=== PATIENT | female | born 1995 | race Caucasian/White ===

== ENCOUNTER 2022-12-30 08:50 | Emergency (ER) | payer MEDICAID ==
[~2022-12-30] VITALS: Ht 170.2 cm; Wt 148.3 kg
[~2022-12-30 08:50] MED LIST: ALB5IS NEB; ALBUAER3 IN; BECL0.07 INH; MECL1TAB42 PO; PROC10TA2 PO
[2022-12-30] MEDS ORDERED: IPRATROPIUM BROM 0.5 MG/2.5ML INH SOL NEB ONE (09:00)
[2022-12-30] MEDS ORDERED: ALBUTEROL SULF 2.5 MG/0.5ML(0.5%) NEB SOLN NEB ONE (09:00)
[2022-12-30 09:40] LABS: Basophils # (auto) 0.1 10 ^3/uL (0-0.2); Basophils % (auto) 0.6 % (0.0-2.0); Eosinophils # (auto) 0.2 10 ^3/uL (0-0.8); Eosinophils % (auto) 1.2 % (0.0-7.0); Hemoglobin 13.9 g/dL (12.2-16.2); Lymphocytes # (auto) 2.1 10 ^3/uL (0.4-5.4); Lymphocytes % (auto) 12.3 % (10.0-50.0); Mean Corpuscular Hemoglobin 28.5 pg (28.0-32.0); Mean Corpuscular Volume 86.4 fL (80.0-100.0); Monocytes # (auto) 1.3 10 ^3/uL (0-1.3); Monocytes % (auto) 7.7 % (0.0-12.0); Neutrophils # (auto) 13.4 10 ^3/uL (1.6-8.6); Neutrophils % (auto) 78.2 % (37.0-80.0); Red Blood Cells 4.86 10^6/uL (4.0-5.20); Red Cell Distribution Width 14.3 % (11.8-14.3); White Blood Cell 17.2 10^3/uL (4.4-10.8)
[2022-12-30] MEDS ORDERED: methylPREDNISolone SOD SUCC 125 MG/2 ML VL IM ONE (09:45)
[2022-12-30] MEDS ORDERED: ALBUTEROL MEDNEB 2.5 mg/3ml NEB ONE (09:45)
[2022-12-30] MEDS ORDERED: PRED20TA2 PO (09:48)
[2022-12-30] MEDS ORDERED: LEVO-28 PO (09:49)
[2022-12-30 09:57] LABS: Albumin 3.6 g/dL (3.4-5.0); Calcium 8.5 mg/dL (8.5-10.1); Potassium 3.9 mmol/L (3.5-5.1)
[2022-12-30 10:01] LABS: BUN/Creatinine Ratio 10.7; Bilirubin, Total 0.9 mg/dL (0.2-1.0); Total Protein 6.7 g/dL (6.4-8.2)
[2022-12-30 13:34] VITALS: BP 133/96
== END 2022-12-30 13:37 | disposition home or self-care (01) ==
LOC: ER 08:50
DX: J45.901 Unspecified asthma with (acute) exacerbation (principal); I10 Essential (primary) hypertension; F17.210 Nicotine dependence, cigarettes, uncomplicated
CPT/HCPCS: 36415; 71045; 80053; 85025; 85379; 94640; 96372; 99284; J2930; J7644

== ENCOUNTER 2024-02-11 07:39 | Emergency (ER) | payer MEDICAID ==
[~2024-02-11] VITALS: Ht 170.2 cm; Wt 150.7 kg
[~2024-02-11 07:39] MED LIST changes: +LEVO500T91 PO; +PRED20TA2 PO; -PROC10TA2 PO; +PROC10TA6 PO
[2024-02-11 07:45] VITALS: BP 146/85; TEMP 97.6
[2024-02-11 08:41] VITALS: PULSE 102
[2024-02-11] MEDS: ALBUTEROL SULF 2.5 MG/0.5ML(0.5%) NEB SOLN NEB ONE ×2 (09:08→09:49)
[2024-02-11] MEDS: IPRATROPIUM BROM 0.5 MG/2.5ML INH SOL NEB ONE ×2 (09:09→09:49)
[2024-02-11] MEDS: DexAMETHasone 4 MG TAB PO ONE (09:20)
[2024-02-11] MEDS: BUDESONIDE (INHALATION) 0.5 MG/2 ML NEB NEB ONE (09:48)
[2024-02-11 09:49] VITALS: RESP 18; O2SAT 100
== END 2024-02-11 10:32 | disposition home or self-care (01) ==
LOC: ER 07:39
DX: J45.901 Unspecified asthma with (acute) exacerbation (principal); I10 Essential (primary) hypertension; F17.210 Nicotine dependence, cigarettes, uncomplicated; F12.10 Cannabis abuse, uncomplicated
CPT/HCPCS: 71046; 94640; 99284; J7644

== ENCOUNTER 2024-08-28 10:00 | Emergency (ER) | payer MEDICAID ==
[~2024-08-28] VITALS: Ht 170.2 cm; Wt 130.5 kg
[2024-08-28] MEDS: IPRATROPIUM BROM 0.5 MG/2.5ML INH SOL HHN ONE (10:49)
[2024-08-28] MEDS: ALBUTEROL SULF 2.5 MG/0.5ML(0.5%) NEB SOLN HHN ONE (10:50)
[2024-08-28] MEDS ORDERED: METH4PAK PO (10:57)
[2024-08-28] MEDS ORDERED: AZIT1POW PO (10:57)
[2024-08-28 13:39] VITALS: BP 115/75; PULSE 101; TEMP 98
[2024-08-28] MEDS: methylPREDNISolone SOD SUCC 125 MG/2 ML VL IV ONE (13:39)
[2024-08-28 13:41] VITALS: RESP 18; O2SAT 96
== END 2024-08-28 13:50 | disposition home or self-care (01) ==
LOC: ER 10:00 → EDUNIT# 10:00 → ER 13:50
DX: J40 Bronchitis, not specified as acute or chronic (principal)
CPT/HCPCS: 71046; 94640; 96374; 99283; J2919; 94644

== ENCOUNTER 2024-09-20 14:25 | Emergency (ER) | payer MEDICAID ==
[~2024-09-20] VITALS: Ht 170.2 cm; Wt 143.5 kg
[~2024-09-20 14:25] MED LIST changes: +AZIT1POW PO; +METH4PAK PO
[2024-09-20 14:59] LABS: Urine WBC None Seen /hpf (0 - 5)
[2024-09-20 15:06] LABS: Basophils # (auto) 0.1 10 ^3/uL (0-0.2); Basophils % (auto) 0.6 % (0.0-2.0); Eosinophils # (auto) 0.5 10 ^3/uL (0-0.8); Eosinophils % (auto) 3.6 % (0.0-7.0); Hematocrit 40.9 % (36.0-46.0); Hemoglobin 13.5 g/dL (12.2-16.2); Lymphocytes # (auto) 2.8 10 ^3/uL (0.4-5.4); Lymphocytes % (auto) 22.4 % (10.0-50.0); Mean Corpuscular Hemoglobin 28.5 pg (28.0-32.0); Mean Corpuscular Volume 86.4 fL (80.0-100.0); Monocytes % (auto) 8.1 % (0.0-12.0); Neutrophils # (auto) 8.3 10 ^3/uL (1.6-8.6); Neutrophils % (auto) 65.3 % (37.0-80.0); Nucleated Red Blood Cells % 0.1 %; Platelet Count (auto) 409 10^3/uL (140-450); Red Blood Cells 4.73 10^6/uL (4.0-5.20); Red Cell Distribution Width 14.7 % (11.8-14.3); White Blood Cell 12.7 10^3/uL (4.4-10.8)
[2024-09-20 15:07] LABS: Urine Bacteria FEW /hpf (None Seen); Urine Blood Negative /uL (Negative); Urine Clarity Clear (Clear); Urine Color Colorless (Yellow); Urine Protein, UAD Negative (Negative); Urine Specific Gravity 1.003 (1.001-1.035); Urine Urobilinogen Normal (Negative); Urine pH 6.5 (5.0-9.0)
[2024-09-20] MEDS: methylPREDNISolone SOD SUCC 125 MG/2 ML VL IM ONE (15:08)
[2024-09-20] MEDS: IPRATROPIUM BROM 0.5 MG/2.5ML INH SOL HHN ONE (15:13)
[2024-09-20] MEDS: ALBUTEROL SULF 2.5 MG/0.5ML(0.5%) NEB SOLN HHN ONE (15:13)
[2024-09-20 15:17] LABS: Chloride 109 mmol/L (98-107); Potassium 3.9 mmol/L (3.5-5.1); Sodium 140 mmol/L (136-145)
[2024-09-20 15:18] LABS: Anion Gap 6 (5-15); Calcium 9.8 mg/dL (8.7-10.4); Carbon Dioxide 25 mmol/L (20-31)
[2024-09-20 15:23] LABS: BUN/Creatinine Ratio 9.2 (10.0-20.0); Blood Urea Nitrogen 7 mg/dL (9-23); Glucose 99 mg/dL (74-106)
[2024-09-20 17:03] VITALS: BP 157/87; PULSE 97; RESP 18; TEMP 98.5; O2SAT 96
== END 2024-09-20 17:04 | disposition home or self-care (01) ==
LOC: ER 14:25
DX: J45.901 Unspecified asthma with (acute) exacerbation (principal); I10 Essential (primary) hypertension; F15.90 Other stimulant use, unspecified, uncomplicated; Z98.890 Other specified postprocedural states; Z87.891 Personal history of nicotine dependence; Z88.0 Allergy status to penicillin; Z79.51 Long term (current) use of inhaled steroids; Z79.52 Long term (current) use of systemic steroids; Z79.899 Other long term (current) drug therapy
CPT/HCPCS: 36415; 71046; 80048; 81001; 83880; 85025; 94640; 96372; 99284; J2919

== ENCOUNTER 2024-10-08 05:51 | Emergency (ER) | payer MEDICAID ==
[~2024-10-08] VITALS: Ht 170.2 cm; Wt 147.9 kg
[2024-10-08 05:55] VITALS: BP 153/59; PULSE 103; RESP 16; O2SAT 100
[2024-10-08 06:40] LABS: Urine Bacteria None Seen /hpf (None Seen); Urine WBC None Seen /hpf (0 - 5)
--- NOTE | 2024-10-08 06:44 | ED.PDOC ---
AIRLINE TICKET AGENT HPI Comments 29 y.o female presents to the ED for a chief complaint of vaginal bleeding associated with cramping that started 3 days ago. 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 Patient states she presented with spotting but intermittently has episodes where bleeding becomes heavier but no blood clots present. Patient has an appointment with OB on 10/21/24. No other symptoms or pain reported. Patient has a medical history of HTN. Denies any alcohol, tobacco or substance use. Patient is on prenatals. Chief Complaint: Vaginal Bleed Time Seen by MD: 06:20 Reviewed Notes: Nurses Notes, Medications, Allergies Allergies: Coded Allergies: Penicillins (Unverified Allergy, Unknown, 03/22/16) Home Meds Active Scripts Methylprednisolone (Medrol Dosepak) 4 Mg Thuan, 4 MG PO UD, #21 TAB UAD Prov:BENNY VALENCIA MD 09/20/24 Azithromycin (Zithromax) 1 Gm Pow, 1 PACK PO ONCE, #1 PACK Prov:BENNY VALENCIA MD 08/28/24 Levofloxacin Hemihydrate (LEVOFLOXACIN) 500 Mg Tab, 500 MG PO DAILY for 7 Days, #7 MG Prov:TOI KUMAR MD 12/30/22 Prednisone (Prednisone) 20 Mg Tab, 20 MG PO DAILY for 7 Days, #7 MG Prov:TOI KUMAR MD 12/30/22 Prochlorperazine Maleate (Compazine) 10 Mg Tb, 1 TAB PO Q6HR for 5 Days, #20 TAB 3 Refills Prov:DIANNE AVILES MD 11/18/22 Meclizine HCl (Meclizine 25) 25 Mg Tab, 25 MG PO DAILY for 5 Days, #5 TAB Prov:TOI KUMAR MD 11/18/22 Reported Medications Albuterol Sulfate (Ventolin) 2.5 Mg/0.5 Ml Nb, 1 VIAL NEB Q6HR, #120 VIAL 5 Refills 03/22/16 Beclomethasone Dipropionate (Qvar) 40 Mcg Aer, 2 PUFF INH BID, #8.7 GRAMS 5 Refills 03/22/16 Albuterol Sulfate (VENTOLIN MDI) 90 Mcg Ih, 90 MCG IN 03/22/16 Information Source: Patient Mode of Arrival: Ambulatory Timing: Days (3) Severity: Moderate Vaginal Discharge: None Vaginal Lesions: None Bleeding Quality: Bright Red Vaginal Mass: None Onset Of Mass/Bleeding: Spontaneous Sexual Activity: Last Consensual Broussard: Unknown Control: None History of: Current Associated Signs and Symptoms: Vaginal Bleeding, Cramping Past Medical History PAST MEDICAL HISTORY: Asthma, HTN Surgical History: TEMPLATE CUTTER History: No Pertinent TEMPLATE CUTTER History 3 Para 1 AB one miscarriage LMP 08/09/24 Family History Family History: Family hx of DM, Family hx of Cancer Social History Smoker: Quit Less Than 1 Year, Secondhand, Cigarettes Alcohol: Occasionally Drugs: Marijuana Lives In: Home Constitutional: denies: chills, diaphoresis, fatigue, fever, malaise, sweats, weakness, others EENTM: denies: blurred vision, double vision, ear bleeding, ear discharge, ear drainage, ear pain, ear ringing, eye pain, eye redness, hearing loss, mouth pain, mouth swelling, nasal discharge, nose bleeding, nose congestion, nose pain, photophobia, tearing, throat pain, throat swelling, voice changes, others Respiratory: denies: cough, hemoptysis, orthopnea, SOB at rest, shortness of breath, SOB with excertion, stridor, wheezing, others Cardiovascular: denies: chest pain, dizzy spells, diaphoresis, Dyspnea on exertion, edema, irregular heart beat, left arm pain, lightheadedness, palpitations, PND, syncope, others Gastrointestinal: denies: abdomen distended, abdominal pain, blood streaked bowels, constipated, diarrhea, dysphagia, difficulty swallowing, hematemesis, melena, nausea, poor appetite, poor fluid intake, rectal bleeding, rectal pain, vomiting, others Genitourinary: reports: abnormal vagina bleeding, pain, ; denies: burning, dyspareunia, dysuria, flank pain, frequency, hematuria, incontinence, vagina discharge, urgency, others Neurological: denies: dizziness, fainting, headache, left sided numbness, left sided weakness, numbness, paresthesia, pre-existing deficit, right sided numbness, right sided weakness, seizure, speech problems, tingling, tremors, weakness, others Musculoskeletal: denies: back pain, gout, joint pain, joint swelling, muscle pain, muscle stiffness, neck pain, others Integumetry: denies: bruises, change in color, change in hair/nails, dryness, laceration, lesions, lumps, rash, wounds, others Allergic/Immunocompromised: denies: Difficulty Healing, Frequent Infections, Hives, Itching, others Hematologic/Lymphatic: denies: anemia, blood clots, easy bleeding, easy bruising, swollen glands, others Endocrine: denies: excessive hunger, excessive sweating, excessive thirst, excessive urination, flushing, intolerance to cold, intolerance to heat, unex plained weight gain, unexplained weight loss, others Psychiatric: denies: anxiety, bipolar disorder, depression, hopeless, panic disorder, schizophrenia, sleepless, suicidal, others All Other Systems: Reviewed and Negative Physical Exam General Appearance: Moderate Distress HEENT: Normal ENT Inspection, Pharynx Normal, TMs Normal Neck: Full Range of Motion, Non-Tender, Normal, Normal Inspection Respiratory: Chest Non-Tender, Lungs Clear, No Accessory Muscle Use, No Respiratory Distress, Normal Breath Sounds Cardiovascular: No Edema, No JVD, No Murmur, No Gallop, Normal Peripheral Pulses, Regular Rate/Rhythm Breast Exam: Deferred Gastrointestinal: No Organomegaly, Non Tender, No Pulsatile Mass, Normal Bowel Sounds, Soft Genitalia: Deferred Pelvic: Deferred Rectal: Deferred Extremities: No calf tenderness, Normal capillary refill, Normal inspection, Normal range of motion, Non-tender, No pedal edema Musculoskeletal : Apperance: Normal Neurologic: Alert, quality improvement coordinator II-XII nml as Tested, No Motor Deficits, Normal Affect, Normal Mood, No Sensory Deficits Cerebellar Function: Normal Reflexes: Normal Skin: Dry, Normal Color, Warm Peripheral Pulses: 3+ Radial (R), 3+ Radial (L) Lymphatic: No Adenopathy Was a procedure done? Was a procedure done?: No Differential Diagnosis (TEMPLATE CUTTER) Vaginal Bleeding: - Complete, - Incomplete, - Missed, - Threatened X-Ray, Labs, Meds, VS Vital Signs Date Time Temp Pulse Resp B/P (MAP) Pulse Ox O2 Delivery O2 Flow Rate FiO2 10/08/24 05:55 98.3 103 16 153/59 (90) 100 Lab Test 10/08/24 07:44 10/08/24 05:58 Range/Units Beta HCG, Quantitative 1637.9 H 1.5-4.2 mIU/mL Urine Color Colorless Yellow Urine Clarity Clear Clear Urine pH 6.5 5.0-9.0 Urine Specific [place] 1.008 1.001-1.035 Urine Protein Negative Negative Urine Ketones Negative Negative Urine Blood Negative Negative /uL Urine Nitrite Negative Negative Urine Bilirubin Negative Negative Urine Urobilinogen Normal Negative mg/dL Urine Leukocyte Esterase Negative Negative /uL Urine RBC <1 0 - 4 /hpf Urine WBC None seen 0 - 5 /hpf Urine Squamous Epithelial Cells Few <5 /hpf Urine Bacteria None seen None Seen /hpf Urine Glucose Normal Normal mg/dL Patient alert. Complaining of vaginal spotting. She is . Vitals stable. Ambulating. Blood pressure slightly elevated. Explained to the patient about her blood pressure. Saturation pristine on room air. Denies cramping. Reviewed her previous history. Ultrasound reviewed shows early we will need to follow up with lab imaging. Explained to the patient. Was told to follow up with her OBGYN. Was told to come back if there is any problem. Time of 1ST Reevaluation: 06:40 Reevaluation 1ST: Unchanged Patient Education/Counseling: Diagnosis, Treatment, Prognosis Family Education/Counseling: No Family Present Departure 1 Departure Time of Disposition: 07:09 Impression: Primary Impression: Vaginal bleeding during Disposition: 01 HOME / SELF CARE / HOMELESS Condition: Good Discharged With: Self Critical Care Note Critical Care Time?: No Stability Stability form required: No I personally scribed for TOI KUMAR MD ([email or web address]) on 10/08/24 at 06:44. Electronically submitted by Yomaira Lebron ([facility]). TOI KUMAR MD Oct 08, 2024 06:44
[2024-10-08 07:02] LABS: Urine Blood Negative /uL (Negative); Urine Clarity Clear (Clear); Urine Color Colorless (Yellow); Urine Protein, UAD Negative (Negative); Urine Specific Gravity 1.008 (1.001-1.035); Urine Urobilinogen Normal (Negative); Urine pH 6.5 (5.0-9.0)
--- NOTE | 2024-10-08 09:26 | DVH ---
INDICATION: Vaginal bleeding TECHNIQUE: Multiple real-time grayscale transabdominal and transvaginal sonographic images along with color and duplex Doppler of the uterus and ovaries were obtained. COMPARISON: None FINDINGS: The uterus measures 8.6 x 5.3 x 4.4 cm. The endometrial stripe measures 1.2 cm. The right ovary measures 4.3 x 3 x 3.3 cm. There is a right ovarian cyst measuring 3.2 cm. There are multiple follicles in the right ovary. There is normal arterial flow in the right ovary. The left ovary is not well visualized due to obscuration from bowel gas. There is trace free fluid in the pelvis. No intrauterine is visualized. IMPRESSION: Thickened endometrium, without visualized gestational sac, pole or cardiac activity. Diff erential considerations include early, normal intrauterine , an anembryonic and sp ontaneous . Recommend correlation with follow-up beta hCG levels. Repeat ultrasound could be performed if clinically indicated.
== END 2024-10-08 10:55 | disposition home or self-care (01) ==
LOC: ER 05:51
DX: O46.8X1 Other antepartum hemorrhage, first trimester (principal); R10.2 Pelvic and perineal pain; I10 Essential (primary) hypertension; J45.909 Unspecified asthma, uncomplicated; R93.89 Abnormal findings on diagnostic imaging of other specified body structures; F12.10 Cannabis abuse, uncomplicated; Z79.51 Long term (current) use of inhaled steroids; Z79.52 Long term (current) use of systemic steroids; Z88.0 Allergy status to penicillin; Z3A.08 8 weeks gestation of pregnancy; Z87.891 Personal history of nicotine dependence
CPT/HCPCS: 36415; 76801; 76817; 81001; 84702

== ENCOUNTER 2024-11-10 19:33 | Inpatient (IN) | payer MEDICAID ==
[~2024-11-10] VITALS: Ht 170.2 cm; Wt 147.9 kg
--- NOTE | 2024-11-10 19:55 | ED.PDOC ---
SOB-HPI HPI Comments 29 year old female presents to the ED with chief complaint of SOB. Patient reports that she has been experiencing SOB with associated chills, chest tightness, and productive cough with green phlegm since yesterday. Patient relays that she has history of asthma, taking her Albuterol 4 times at 1830 with no relief noted. Patient states she last had an asthma exacerbation episode a month ago and has been intubated before in the past. Patient denies any chest pain, fever, chills, dizziness, headache, or N/V. Chief Complaint: Shortness of Breath Time Seen by MD: 19:51 Primary Care Provider: ANNEL Herrera notes: Nurses Notes, Medications, Allergies Information Source: Patient Mode of Arrival: Ambulatory Severity: Moderate Timing: Days Duration: Since onset Context: At Rest PE Risk Factors: None History of: Asthma Prehospital treatment: Breathing Tx Modifying Factors: Nothing Associated Signs and Symptoms: None If cough with SOB: Non-Productive Past Medical History PAST MEDICAL HISTORY: Asthma, HTN Surgical History: , Tonsillectomy Surgical History (Other): Ear tubes SPONGE CLIPPER History: No Pertinent SPONGE CLIPPER History Family History Family History: Family hx of DM, Family hx of Cancer Social History Smoker: Quit Less Than 1 Year, Secondhand, Cigarettes Alcohol: Occasionally Drugs: Marijuana Lives In: Home Constitutional: denies: chills, diaphoresis, fatigue, fever, malaise, sweats, weakness, others EENTM: denies: blurred vision, double vision, ear bleeding, ear discharge, ear drainage, ear pain, ear ringing, eye pain, eye redness, hearing loss, mouth pain, mouth swelling, nasal discharge, nose bleeding, nose congestion, nose pain, photophobia, tearing, throat pain, throat swelling, voice changes, others Respiratory: reports: cough, shortness of breath, wheezing; denies: hemoptysis, orthopnea, SOB at rest, SOB with excertion, stridor, others Cardiovascular: denies: chest pain, dizzy spells, diaphoresis, Dyspnea on exertion, edema, irregular heart beat, left arm pain, lightheadedness, palpitations, PND, syncope, others Gastrointestinal: denies: abdomen distended, abdominal pain, blood streaked bowels, constipated, diarrhea, dysphagia, difficulty swallowing, hematemesis, melena, nausea, poor appetite, poor fluid intake, rectal bleeding, rectal pain, vomiting, others Genitourinary: denies: abnormal vagina bleeding, burning, dyspareunia, dysuria, flank pain, frequency, hematuria, incontinence, pain, , vagina discharge, urgency, others Neurological: denies: dizziness, fainting, headache, left sided numbness, left sided weakness, numbness, paresthesia, pre-existing deficit, right sided numbness, right sided weakness, seizure, speech problems, tingling, tremors, weakness, others Musculoskeletal: denies: back pain, gout, joint pain, joint swelling, muscle pain, muscle stiffness, neck pain, others Integumetry: denies: bruises, change in color, change in hair/nails, dryness, laceration, lesions, lumps, rash, wounds, others Allergic/Immunocompromised: denies: Difficulty Healing, Frequent Infections, Hives, Itching, others Hematologic/Lymphatic: denies: anemia, blood clots, easy bleeding, easy bruising, swollen glands, others Endocrine: denies: excessive hunger, excessive sweating, excessive thirst, excessive urination, flushing, intolerance to cold, intolerance to heat, unexplained weight gain, unexplained weight loss, others Psychiatric: denies: anxiety, bipolar disorder, depression, hopeless, panic disorder, schizophrenia, sleepless, suicidal, others All Other Systems: Reviewed and Negative Physical Exam General Appearance: No Apparent Distress, Normal HEENT: Normal ENT Inspection, Pharynx Normal, TMs Normal Neck: Full Range of Motion, Non-Tender, Normal, Normal Inspection Respiratory: Chest Non-Tender, Lungs Clear, No Accessory Muscle Use, Normal Breath Sounds, Wheezing (Wheezing in all lung camarena), Other (Mild respiratory distress, tachypneic @24) Cardiovascular: No Edema, No JVD, No Murmur, No Gallop, Normal Peripheral Pulses, Regular Rate/Rhythm Breast Exam: Deferred Gastrointestinal: No Organomegaly, Non Tender, No Pulsatile Mass, Normal Bowel Sounds, Soft Genitalia: Deferred Pelvic: Deferred Rectal: Deferred Extremities: No calf tenderness, Normal capillary refill, Normal inspection, Normal range of motion, Non-tender, No pedal edema Musculoskeletal : Apperance: Normal Neurologic: Alert, javascript developer II-XII nml as Tested, No Motor Deficits, Normal Affect, Normal Mood, No Sensory Deficits Cerebellar Function: Normal Reflexes: Normal Skin: Dry, Normal Color, Warm Lymphatic: No Adenopathy Was a procedure done? Was a procedure done?: No Differential Dx Differential Diagnosis: Asthma X-Ray, Labs, Meds, VS Vital Signs Date Time Temp Pulse Resp B/P (MAP) Pulse Ox O2 Delivery O2 Flow Rate FiO2 11/10/24 20:39 18 98 Nasal Cannula* 2 28 11/10/24 20:14 20 95 Nasal Cannula* 2 28 11/10/24 19:50 98.9 140 28 155/99 (117) 93 11/10/24 19:49 28 93 Room Air* 0 21 11/10/24 19:48 135 Current Medications Medications (Trade) Dose Ordered Sig/Alda Route Start Time Stop Time Status Last Admin Albuterol (Ventolin Medneb) 5 mg ONCE ONCE NEB 11/10/24 20:00 11/10/24 20:01 DC 11/10/24 20:13 Ipratropium [place] (Atrovent Medneb) 0.5 mg ONCE ONCE NEB 11/10/24 20:00 11/10/24 20:01 DC 11/10/24 20:12 Methylprednisolone Sodium Succinate (Solu Medrol) 125 mg ONCE ONCE IM 11/10/24 20:00 11/10/24 20:01 DC 11/10/24 21:08 X-Ray, Labs, Meds, VS Comment Imaging: X-rays and CT scans were reviewed and interpreted by this provider, imaging shows no fractures and no pathological disease. Pending radiology review. Laboratory: Labs reviewed and interpreted by this provider. No significant abnormalities noted. Patient has prior medical visits reviewed. Med reconciliation performed Vital signs reviewed After the initial breathing treatment, patient shows no significant improvement, still having trouble breathing. Feels as though her wheezing is getting worse. Recommend admission for continued observation and breathing treatments. Time of 1ST Reevaluation: 20:51 Reevaluation 1ST: Improved Patient Education/Counseling: Diagnosis, Treatment Family Education/Counseling: No Family Present Departure 1 Departure Time of Disposition: 22:16 Impression: Primary Impression: Acute asthma exacerbation Qualified Codes: J45.51 - Severe persistent asthma with (acute) exacerbation Disposition: ADMITTED INPATIENT Condition: Guarded Discharged With: Self Critical Care Note Critical Care Time?: No Stability Stability form required: No Heart Score Heart Score: Heart Score Response (Comments) Value History N/A 0 EKG N/A 0 Age N/A 0 Risk Factors N/A 0 Troponin N/A 0 Total 0 I personally scribed for SAGRARIO POWERS ([email or web address]) on 11/10/24 at 19:55. Electronically submitted by Benny Guajardo ([email or web address]). SAGRARIO POWERS Nov 10, 2024 19:55
[2024-11-10] MEDS: IPRATROPIUM BROM 0.5 MG/2.5ML INH SOL NEB ONE ×2 (20:12→22:28)
[2024-11-10] MEDS: ALBUTEROL SULF 2.5 MG/0.5ML(0.5%) NEB SOLN NEB ONE ×2 (20:13→22:29)
--- NOTE | 2024-11-10 20:18 | DVH ---
CHEST RADIOGRAPH Indication: sob Technique: Single frontal view of the chest was obtained Comparison: CHEST PORTABLE on DOS: 12/30/22, CXRP on DOS: 12/30/22 FINDINGS: Lines and Tubes: None Lungs: Clear Pleura: No effusion. No pneumothorax. Cardiomediastinal contours: Unremarkable Bones: Unremarkable IMPRESSION: 1. Clear lungs.
[2024-11-10 20:39] VITALS: RESP 18; O2SAT 98
[2024-11-10] MEDS: methylPREDNISolone SOD SUCC 125 MG/2 ML VL IM ONE (21:08)
[2024-11-10] MEDS ORDERED: ONDANSETRON HCL 4 MG/2 ML VIAL IV PRN (23:00)
[2024-11-10 23:06] LABS: Basophils # (auto) 0 10 ^3/uL (0-0.2); Basophils % (auto) 0.3 % (0.0-2.0); Eosinophils # (auto) 0.2 10 ^3/uL (0-0.8); Eosinophils % (auto) 2.9 % (0.0-7.0); Hematocrit 40.5 % (36.0-46.0); Hemoglobin 13.5 g/dL (12.2-16.2); Lymphocytes # (auto) 0.5 10 ^3/uL (0.4-5.4); Lymphocytes % (auto) 5.6 % (10.0-50.0); Mean Corpuscular Hgb Conc. 33.2 g/dL (32.0-36.0); Mean Corpuscular Volume 87.5 fL (80.0-100.0); Monocytes # (auto) 0.6 10 ^3/uL (0-1.3); Monocytes % (auto) 6.5 % (0.0-12.0); Neutrophils # (auto) 7.3 10 ^3/uL (1.6-8.6); Neutrophils % (auto) 84.7 % (37.0-80.0); Platelet Count (auto) 334 10^3/uL (140-450); Red Blood Cells 4.63 10^6/uL (4.0-5.20); Red Cell Distribution Width 14.6 % (11.8-14.3); White Blood Cell 8.7 10^3/uL (4.4-10.8)
[2024-11-10 23:07] LABS: Base Excess 0.4 mmol/L (-2.0-3.0)
[2024-11-10 23:24] LABS: Alanine Aminotransferase 23 U/L (7-40); Albumin 4.3 g/dL (3.2-4.8); Alkaline Phosphatase 63 U/L (46-116); Anion Gap 9 (5-15); Aspartate Aminotransferase 20 U/L (13-40); BUN/Creatinine Ratio 11.7 (10.0-20.0); Bilirubin, Total 0.9 mg/dL (0.2-1.0); Calcium 9.6 mg/dL (8.7-10.4); Carbon Dioxide 24 mmol/L (20-31); Chloride 105 mmol/L (98-107); Sodium 138 mmol/L (136-145); Total Protein 6.8 g/dL (5.7-8.2)
[2024-11-10 23:29] LABS: Blood Urea Nitrogen 9 mg/dL (9-23); Glucose 119 mg/dL (74-106)
[2024-11-10 23:46] VITALS: BP 155/99; PULSE 122; RESP 20; TEMP 98.9; O2SAT 96
[2024-11-11] VITALS (13 sets, daily range): PULSE 78–124; RESP 16–27; O2SAT 88–98
[2024-11-11] MEDS: ALBUTEROL SULF 2.5 MG/0.5ML(0.5%) NEB SOLN NEB PRN ×2 (01:30→05:28)
[2024-11-11] MEDS: IPRATROPIUM BROM 0.5 MG/2.5ML INH SOL NEB PRN ×2 (01:30→05:30)
[2024-11-11 02:46] LABS: COVID19 ANTIGEN SOFIA FIA NEGATIVE (NEGATIVE); Rapid Influenza A Negative (Negative); Rapid Influenza B Negative (Negative)
[2024-11-11] MEDS: guaiFENesin-DM 100/10mg/5ml SYR PO ONE (04:51)
--- NOTE | 2024-11-11 05:06 | DVHHP2 ---
History of Present Illness Reason for Visit: Shortness of breath History of Present Illness 29-year-old female presents for evaluation of shortness for breath. Patient with a history of asthma reports using her albuterol without relief of the symptoms. Symptoms have been ongoing for the past day. She reports having intermittent chills with a productive cough with green phlegm. Denies chest pain. No other acute complaints reported. Past Medical History Hypertension and asthma Past Surgical History Tonsillectomy Family History Cancer and diabetes mellitus Smoke: <1 pack per day ALCOHOL: occassional Drugs: Marijuana Lives: with Family Review of Systems Review of Systems Review of systems are currently negative otherwise addressed in HPI. Allergies: Coded Allergies: Penicillins (Unverified Allergy, Unknown, 03/22/16) Medications Current Medications Medications Dose Ordered Sig/Alda Route Start Time Stop Time Status Last Admin Dose Admin Methylprednisolone Sodium Succinate 40 mg BID IV 11/11/24 10:00 Albuterol 2.5 mg Q6HPRN PRN NEB 11/10/24 23:00 11/11/24 01:30 2.5 MG Ipratropium [place] 0.5 mg Q6HPRN PRN NEB 11/10/24 23:00 11/11/24 01:30 0.5 MG Ondansetron HCl 4 mg Q4HP PRN IV 11/10/24 23:00 Acetaminophen 650 mg Q6HP PRN PO 11/10/24 23:00 Guaifenesin/ Dextromethorphan 10 ml Q4HP PRN PO 11/11/24 04:48 Exam Vital Signs Vital Signs Date Time Temp Pulse Resp B/P (MAP) Pulse Ox O2 Delivery O2 Flow Rate FiO2 11/11/24 04:00 113 29 110/76 (87) 94 11/11/24 02:30 Nasal Cannula* 6 44 11/11/24 02:30 98.9 98.9 Exam Gen: 29-year-old female in mild distress Skin: Warm, dry, normal color and texture, no rash. HEENT: Normocephalic atraumatic, mucous membranes moist and pink. Neck: Cervical and supraclavicular nodes normal without enlargement, trachea is midline, thyroid gland is normal without masses. Pulmonary: Diminished breath sounds bilaterally Cardiac: Regular rate and rhythm. No murmur Abdomen: Soft, nontender, nondistended, bowel sounds present all 4 quadrants, no guarding, no rigidity, no organomegaly. Extremities: No cyanosis, clubbing, no edema Neuro: Cranial nerves II through XII grossly intact, normal affect and speech, no focal motor deficits. Labs/Xrays ORDERING PHYSICIAN: SAGRARIO POWERS PROCEDURE(s): CXR1 - CHEST XRAY 1 VIEW REASON: sob ORDER NUMBER(s): [id number], ACCESSION NUMBER(s): [id number] CHEST RADIOGRAPH Indication: sob Technique: Single frontal view of the chest was obtained Comparison: CHEST PORTABLE on DOS: 12/30/22, CXRP on DOS: 12/30/22 FINDINGS: Lines and Tubes: None Lungs: Clear Pleura: No effusion. No pneumothorax. Cardiomediastinal contours: Unremarkable Bones: Unremarkable IMPRESSION: 1. Clear lungs. P Labs Test 11/11/24 01:49 11/10/24 23:03 11/10/24 22:45 Range/Units Influenza Type A Antigen Negative Negative Influenza Type B Antigen Negative Negative SARS-CoV-2 Antigen (Rapid) Negative NEGATIVE Blood Gas Specimen Type Arterial Blood Gas Sample Site Right radial Blood Gas Patient Temperature 37.0 Arterial Blood Date Drawn [id number] Arterial Blood pH 7.447 7.350-7.450 Arterial Blood Partial Pressure CO2 35.6 32.0-45.0 mmHg Arterial Blood Partial Pressure O2 66.4 L 83.0-108.0 mmHg Arterial Blood HCO3 24.0 21.0-28.0 mmol/L Arterial Blood Oxygen Saturation 93.7 L 94.0-98.0 % Arterial Blood Base Excess 0.4 -2.0-3.0 mmol/L Arterial Blood Oxyhemoglobin 92.7 L 94.0-98.0 % Arterial Blood Carboxyhemoglobin 0.6 0.5-1.5 % Arterial Blood Methemoglobin 0.5 0.0-1.5 % Jose Antonio Test Yes Blood Gas Total Hemoglobin 14.40 12.0-16.0 g/dL Blood Gas Liter Flow 4.00 Blood Gas Modality Nasal cannula FiO2 % 36.0 White Blood Count 8.7 4.4-10.8 10^3/uL Red Blood Count 4.63 4.0-5.20 10^6/uL Hemoglobin 13.5 12.2-16.2 g/dL Hematocrit 40.5 36.0-46.0 % Mean Corpuscular Volume 87.5 80.0-100.0 fL Mean Corpuscular Hemoglobin 29.0 28.0-32.0 pg Mean Corpuscular Hemoglobin Concent 33.2 32.0-36.0 g/dL Red Cell Distribution Width 14.6 H 11.8-14.3 % Platelet Count 334 140-450 10^3/uL Mean Platelet Volume 7.2 6.9-10.8 fL Neutrophils (%) (Auto) 84.7 H 37.0-80.0 % Lymphocytes (%) (Auto) 5.6 L 10.0-50.0 % Monocytes (%) (Auto) 6.5 0.0-12.0 % Eosinophils (%) (Auto) 2.9 0.0-7.0 % Basophils (%) (Auto) 0.3 0.0-2.0 % Neutrophils # (Auto) 7.3 1.6-8.6 10 ^3/uL Lymphocytes # (Auto) 0.5 0.4-5.4 10 ^3/uL Monocytes # (Auto) 0.6 0-1.3 10 ^3/uL Eosinophils # (Auto) 0.2 0-0.8 10 ^3/uL Basophils # (Auto) 0 0-0.2 10 ^3/uL Nucleated Red Blood Cells 0.0 % Sodium Level 138 136-145 mmol/L Potassium Level 4.0 3.5-5.1 mmol/L Chloride Level 105 98-107 mmol/L Carbon Dioxide Level 24 20-31 mmol/L Anion Gap 9 5-15 Blood Urea Nitrogen 9 9-23 mg/dL Creatinine 0.77 0.550-1.02 mg/dL Glomerular Filtration Rate Calc 107 >90 mL/min BUN/Creatinine Ratio 11.7 10.0-20.0 Serum Glucose 119 H 74-106 mg/dL Lactic Acid Level 1.1 0.4-2.0 mmol/L Calcium Level 9.6 8.7-10.4 mg/dL Total Bilirubin 0.9 0.2-1.0 mg/dL Aspartate Amino Transferase (AST) 20 13-40 U/L Alanine Aminotransferase (ALT) 23 7-40 U/L Alkaline Phosphatase 63 46-116 U/L Total Protein 6.8 5.7-8.2 g/dL Albumin 4.3 3.2-4.8 g/dL Assessment/Plan Assessment/Plan Assessment Acute on chronic respiratory failure Asthma exacerbation Hypertension Obesity Plan Admit the patient to telemetry to the hospitalist Matt landrum Azithromycin Resume home medications Continue treatment per orders. Plan discussed with: Patient My Orders Orders - LAUREN MOON Procedure Category Date Status Time Methylprednisolone PHA 11/11/24 In Process Sod Succ (Solu Medrol 10:00 Albuterol Medneb PHA 11/10/24 In Process (Ventolin Medneb) 23:00 Ipratropium Medneb PHA 11/10/24 In Process (Atrovent Medneb) 23:00 Basic Metabolic Panel LAB 11/11/24 Logged 04:00 Admit ADMIT 11/10/24 Transmitted 22:59 Ondansetron Hcl PHA 11/10/24 In Process (Zofran) 23:00 Cardiac DIET 11/11/24 Transmitted Diet-2gna,Lofat,Lochol Breakfast Condition: Fair JES 11/10/24 In Process 22:59 Acetaminophen Tablet PHA 11/10/24 In Process (Tylenol Tablet) 23:00 Bedrest With Bathroom JES 11/10/24 In Process Privileg 22:59 Guaifenesin-Dextromet PHA 11/11/24 In Process Liquid (Robitussin 04:48 Date of Service: Nov 11, 2024 Billing Provider: LAUREN MOON Common Visit Codes: [id number] INP/OBS CARE (HIGH) LAUREN MOON Nov 11, 2024 05:06
[2024-11-11 05:24] LABS: Chloride 105 mmol/L (98-107); Potassium 4.2 mmol/L (3.5-5.1); Sodium 138 mmol/L (136-145)
[2024-11-11 05:25] LABS: Anion Gap 7 (5-15); Calcium 9.8 mg/dL (8.7-10.4); Carbon Dioxide 26 mmol/L (20-31)
[2024-11-11 05:30] LABS: BUN/Creatinine Ratio 9.9 (10.0-20.0)
[2024-11-11] MEDS ORDERED: IPRATROPIUM BROM 0.5 MG/2.5ML INH SOL NEB PRN (06:00)
[2024-11-11] MEDS ORDERED: ALBUTEROL SULF 2.5 MG/0.5ML(0.5%) NEB SOLN NEB PRN (06:00)
[2024-11-11 06:01] LABS: Blood Urea Nitrogen 8 mg/dL (9-23); Glucose 159 mg/dL (74-106)
[2024-11-11] MEDS: methylPREDNISolone SOD SUCC 40 MG/ML VL IV SCH (10:52)
[2024-11-11] MEDS: AZITHROMYCIN 500MG/ 250ML 250 ML IV SCH (11:02)
[2024-11-11] MEDS: IPRATROPIUM BROM 0.5 MG/2.5ML INH SOL NEB SCH ×2 (11:19→17:26)
[2024-11-11] MEDS: ALBUTEROL SULF 2.5 MG/0.5ML(0.5%) NEB SOLN NEB SCH ×2 (11:19→17:26)
[2024-11-11] MEDS: BUDESONIDE (INHALATION) 0.5 MG/2 ML NEB NEB SCH ×2 (11:19→17:26)
[2024-11-11] MEDS: guaiFENesin-DM 100/10mg/5ml SYR PO PRN (11:38)
--- NOTE | 2024-11-11 14:44 | DVHPN2 ---
Subjective PATIENT CONTINUES TO REPORT HAVING SHORTNESS OF BREATH. Reviewed: Care Plan, H&P, Labs, Medications Changes from previous H/P or p: No Changes General: Per HPI Objective Vitals Vital Signs Date Time Temp Pulse Resp B/P (MAP) Pulse Ox O2 Delivery O2 Flow Rate FiO2 11/11/24 13:00 102 19 122/94 (103) 93 11/11/24 11:00 98.4 98.4 11/11/24 10:00 Oxymizer 8 N/A General Appearance: Alert, Oriented X3, Cooperative, mild distress HEENT: Atraumatic, PERRLA Lungs: Other (Inspiratory and expiratory wheezing. Patient was Oxymizer at 8 liters/minute.) Cardiovascular: Normal S1, Normal S2 Abdomen: Normal bowel sounds, Soft Musculoskeletal: Normal sensory function, Normal motor function Neuro: Normal speech Psych/Mental Status: Mental status NL, Mood NL Medications Current Medications Medications Dose Ordered Sig/Alda Route Start Time Stop Time Status Last Admin Dose Admin Methylprednisolone Sodium Succinate 40 mg BID IV 11/11/24 10:00 11/11/24 10:52 40 MG Ondansetron HCl 4 mg Q4HP PRN IV 11/10/24 23:00 Acetaminophen 650 mg Q6HP PRN PO 11/10/24 23:00 Guaifenesin/ Dextromethorphan 10 ml Q4HP PRN PO 11/11/24 04:48 11/11/24 11:38 10 ML Azithromycin 250 ml @ 125 mls/hr DAILY IV 11/11/24 10:00 11/11/24 11:02 125 MLS/HR Budesonide 0.5 mg BID NEB 11/11/24 10:00 11/11/24 11:19 0.5 MG Albuterol 2.5 mg Q4HR NEB 11/11/24 18:00 UNV Ipratropium [place] 0.5 mg Q4HR NEB 11/11/24 18:00 UNV Laboratory Results Laboratory Tests 11/10/24 22:45 11/11/24 04:40 Chemistry Test 11/10/24 22:45 11/11/24 04:40 Albumin 4.3 g/dL (3.2-4.8) Calcium Level 9.6 mg/dL (8.7-10.4) 9.8 mg/dL (8.7-10.4) Total Protein 6.8 g/dL (5.7-8.2) LFT Test 11/10/24 22:45 Alanine Aminotransferase (ALT) 23 U/L (7-40) Alkaline Phosphatase 63 U/L (46-116) Aspartate Amino Transferase (AST) 20 U/L (13-40) Total Bilirubin 0.9 mg/dL (0.2-1.0) Blood Gas Results Test 11/10/24 23:03 Arterial Blood pH 7.447 (7.350-7.450) FiO2 % 36.0 Labs and/or images reviewed: Labs reviewed by me, Image(s) reviewed by me Assessment/Plan Assessment/Plan Impression: -acute on chronic hypoxic respiratory failure -asthma exacerbation -rule out bronchial pneumonia -morbid obesity Plan: -DuoNebs q.4 hours -Pulmicort b.i.d. -continue mucolytics -IV hydration -IV magnesium -pulmonary consultation -repeat chest x-ray in a.m. Total time spent with patient discussing and formulating plan of care: 35 minutes. This medical document was created using an electronic medical record system with [employer] dictation system. Although this document has been carefully reviewed, there may still be some phonetic and typographical errors. These areas are purely typographical due to imperfections of the software programs, and do not reflect any compromise in the patient's medical care. Plan discussed with: Patient, Other (RN) Date of Service: Nov 11, 2024 Billing Provider: SEGUN CARLOS NP Common Visit Codes: [id number] INP/OBS CARE(HIGH) SEGUN CARLOS NP Nov 11, 2024 14:44
--- NOTE | 2024-11-11 15:18 | DVH ---
CHEST RADIOGRAPH Indication: HYPOXIA Technique: Single frontal view of the chest was obtained Comparison: XY CHEST XRAY 1 VIEW on DOS: 11/10/24, CHEST PORTABLE on DOS: 12/30/22 FINDINGS: Lines and Tubes: None Lungs: No focal consolidation. Pleura: No effusion.No pneumothorax. Cardiomediastinal contours: Unremarkable Pulmonary vasculature: Within normal limits. Bones: No acute osseous abnormality. IMPRESSION: 1. No acute cardiopulmonary disease. HS:Y
[2024-11-11] MEDS: SODIUM CHLORIDE 0.9% 1,000 ML IV ONE (15:28)
[2024-11-11] MEDS: MAGNESIUM SULFATE 1GM/100ML 100 ML IV ONE (15:28)
[2024-11-11] MEDS ORDERED: ALBUTEROL SULF 2.5 MG/0.5ML(0.5%) NEB SOLN NEB SCH (18:00)
[2024-11-11] MEDS ORDERED: IPRATROPIUM BROM 0.5 MG/2.5ML INH SOL NEB SCH (18:00)
[2024-11-11] MEDS: ACETAMINOPHEN 325 MG TAB PO PRN (18:00)
--- NOTE | 2024-11-11 21:43 | DVHINCON2 ---
Date of service: Nov 11, 2024 Referring Physician Bala Marroquin NP Reason for Consultation Acute on chronic hypoxic respiratory failure and asthma exacerbation. History of Present Illness A 29-year-old woman with past medical history of asthma and hypertension presented to the ED on 11/10/24 with c/o shortness of breath. Patient reported using her albuterol without relief of the symptoms. Symptoms had been ongoing t hroughout the day prior to presentation. Pt reported intermittent chills with associated productive cough with green phlegm. Denied chest pain or other acute complaints. Patient was admitted for further care, and pulmonary consultation is requested for evaluation and management d/t acute on chronic hypoxic respiratory failure and asthma exacerbation. Review of Systems: 14-point review of systems negative unless otherwise noted above. Past Medical History: Hypertension, emphysema, asthma Past Surgical History: Tonsillectomy Medications: Reviewed. Allergies: Penicillins. Family History: Cancer and diabetes mellitus Social History: Smoker, <1 pack per day. Occasional alcohol use. Admits to marijuana use. Family History: FH: emphysema Family history: Hypertension G8 MOTHER G8 FATHER Allergies: Coded Allergies: Penicillins (Unverified Allergy, Unknown, 03/22/16) Home Meds Reported Medications Albuterol Sulfate (Ventolin) 2.5 Mg/0.5 Ml Nb, 1 VIAL NEB Q6HR, #120 VIAL 5 Refills 03/22/16 Beclomethasone Dipropionate (Qvar) 40 Mcg Aer, 2 PUFF INH BID, #8.7 GRAMS 5 Refills 03/22/16 Albuterol Sulfate (VENTOLIN MDI) 90 Mcg Ih, 90 MCG IN 03/22/16 Current Medications Current Medications Medications (Trade) Dose Ordered Sig/Alda Route PRN Reason Start Time Stop Time Status Last Admin Methylprednisolone Sodium Succinate (Solu Medrol) 40 mg BID IV 11/11/24 10:00 11/11/24 10:52 Albuterol (Ventolin Medneb) 2.5 mg Q6HPRN PRN NEB SHORTNESS OF BREATH 11/10/24 23:00 11/11/24 05:14 DC 11/11/24 01:30 Ipratropium [place] (Atrovent Medneb) 0.5 mg Q6HPRN PRN NEB SHORTNESS OF BREATH 11/10/24 23:00 11/11/24 05:14 DC 11/11/24 01:30 Ondansetron HCl (Zofran) 4 mg Q4HP PRN IV NAUSEA / VOMITING 11/10/24 23:00 Acetaminophen (Tylenol Tablet) 650 mg Q6HP PRN PO PAIN SCALE 1-3 OR TEMP>100.4 11/10/24 23:00 11/11/24 18:00 Guaifenesin/ Dextromethorphan (Robitussin-Dm Liquid) 10 ml Q4HP PRN PO FOR COUGH 11/11/24 04:48 11/11/24 16:09 Azithromycin 250 ml @ 125 mls/hr DAILY IV 11/11/24 10:00 11/11/24 11:02 Albuterol (Ventolin Medneb) 2.5 mg Q4HPRN PRN NEB SHORTNESS OF BREATH 11/11/24 05:15 11/11/24 05:44 DC 11/11/24 05:28 Ipratropium [place] (Atrovent Medneb) 0.5 mg Q4HPRN PRN NEB SHORTNESS OF BREATH 11/11/24 05:15 11/11/24 05:44 DC 11/11/24 05:30 Albuterol (Ventolin Medneb) 2.5 mg Q4H PRN NEB SHORTNESS OF BREATH 11/11/24 06:00 11/11/24 08:36 DC Ipratropium [place] (Atrovent Medneb) 0.5 mg Q4H PRN NEB SHORTNESS OF BREATH 11/11/24 06:00 11/11/24 08:36 DC Albuterol (Ventolin Medneb) 2.5 mg Q6HR NEB 11/11/24 12:00 11/11/24 14:27 DC 11/11/24 11:19 Ipratropium [place] (Atrovent Medneb) 0.5 mg Q6HR NEB 11/11/24 12:00 11/11/24 14:27 DC 11/11/24 11:19 Budesonide (Pulmicort) 0.5 mg BID NEB 11/11/24 10:00 11/11/24 15:21 DC 11/11/24 11:19 Albuterol (Ventolin Medneb) 2.5 mg Q4HR NEB 11/11/24 18:00 11/11/24 15:21 DC Ipratropium [place] (Atrovent Medneb) 0.5 mg Q4HR NEB 11/11/24 18:00 11/11/24 15:22 DC Albuterol (Ventolin Medneb) 2.5 mg Q4HWA NEB 11/11/24 18:00 11/11/24 21:29 Ipratropium [place] (Atrovent Medneb) 0.5 mg Q4HWA NEB 11/11/24 18:00 11/11/24 21:30 Budesonide (Pulmicort) 0.5 mg BID NEB 11/11/24 22:00 11/11/24 17:26 Doxycycline Monohydrate (Vibramycin Tablet) 100 mg Q12HR PO 11/11/24 22:00 Loratadine (Claritin Tablet) 10 mg DAILY PO 11/12/24 10:00 Budesonide (Pulmicort) 0.5 mg BID NEB 11/11/24 22:00 11/11/24 15:20 DC Vital Signs Vital Signs Date Time Temp Pulse Resp B/P (MAP) Pulse Ox O2 Delivery O2 Flow Rate FiO2 11/11/24 21:35 106 17 98 11/11/24 21:30 Oxymizer 8 N/A 11/11/24 19:30 98.0 108/53 (71) 98.0 Physical Exam Gen.: Patient lying in bed in no apparent distress. On supplemental oxygen. Head: Normocephalic, atraumatic. Eyes: EOMI/PERRLA. Ears: Normal hearing. Normal anatomy. Neck/trachea: Trachea midline, supple. Nose: Normal external anatomy. Mouth: Moist mucous membranes. Chest: Decreased air entry bilaterally. No wheezing or rhonchi. Cardiovascular: Positive S1, positive S2. Regular rate and rhythm. Abdomen: Positive bowel sounds in all 4 quadrants. Soft, non-tender, non- distended. : Deferred. Rectal: Deferred. Skin: Warm, dry. Intact. Extremities: 2+ radial pulses bilaterally. No lower extremity edema. Neuro: Awake, alert, oriented x3. No gross motor or sensory deficits. Cranial nerves II through XII intact. Gait not assessed. Labs/Diagnostic Data Labs Test 11/11/24 04:40 11/11/24 01:49 11/10/24 23:03 11/10/24 22:45 Range/Units Sodium Level 138 136-145 mmol/L Potassium Level 4.2 3.5-5.1 mmol/L Chloride Level 105 98-107 mmol/L Carbon Dioxide Level 26 20-31 mmol/L Anion Gap 7 5-15 Blood Urea Nitrogen 8 L 9-23 mg/dL Creatinine 0.81 0.550-1.02 mg/dL Glomerular Filtration Rate Calc 101 >90 mL/min BUN/Creatinine Ratio 9.9 L 10.0-20.0 Serum Glucose 159 H 74-106 mg/dL Calcium Level 9.8 8.7-10.4 mg/dL Influenza Type A Antigen Negative Negative Influenza Type B Antigen Negative Negative SARS-CoV-2 Antigen (Rapid) Negative NEGATIVE Blood Gas Specimen Type Arterial Blood Gas Sample Site Right radial Blood Gas Patient Temperature 37.0 Arterial Blood Date Drawn [id number] Arterial Blood pH 7.447 7.350-7.450 Arterial Blood Partial Pressure CO2 35.6 32.0-45.0 mmHg Arterial Blood Partial Pressure O2 66.4 L 83.0-108.0 mmHg Arterial Blood HCO3 24.0 21.0-28.0 mmol/L Arterial Blood Oxygen Saturation 93.7 L 94.0-98.0 % Arterial Blood Base Excess 0.4 -2.0-3.0 mmol/L Arterial Blood Oxyhemoglobin 92.7 L 94.0-98.0 % Arterial Blood Carboxyhemoglobin 0.6 0.5-1.5 % Arterial Blood Methemoglobin 0.5 0.0-1.5 % Jose Antonio Test Yes Blood Gas Total Hemoglobin 14.40 12.0-16.0 g/dL Blood Gas Liter Flow 4.00 Blood Gas Modality Nasal cannula FiO2 % 36.0 White Blood Count 8.7 4.4-10.8 10^3/uL Red Blood Count 4.63 4.0-5.20 10^6/uL Hemoglobin 13.5 12.2-16.2 g/dL Hematocrit 40.5 36.0-46.0 % Mean Corpuscular Volume 87.5 80.0-100.0 fL Mean Corpuscular Hemoglobin 29.0 28.0-32.0 pg Mean Corpuscular Hemoglobin Concent 33.2 32.0-36.0 g/dL Red Cell Distribution Width 14.6 H 11.8-14.3 % Platelet Count 334 140-450 10^3/uL Mean Platelet Volume 7.2 6.9-10.8 fL Neutrophils (%) (Auto) 84.7 H 37.0-80.0 % Lymphocytes (%) (Auto) 5.6 L 10.0-50.0 % Monocytes (%) (Auto) 6.5 0.0-12.0 % Eosinophils (%) (Auto) 2.9 0.0-7.0 % Basophils (%) (Auto) 0.3 0.0-2.0 % Neutrophils # (Auto) 7.3 1.6-8.6 10 ^3/uL Lymphocytes # (Auto) 0.5 0.4-5.4 10 ^3/uL Monocytes # (Auto) 0.6 0-1.3 10 ^3/uL Eosinophils # (Auto) 0.2 0-0.8 10 ^3/uL Basophils # (Auto) 0 0-0.2 10 ^3/uL Nucleated Red Blood Cells 0.0 % Lactic Acid Level 1.1 0.4-2.0 mmol/L Total Bilirubin 0.9 0.2-1.0 mg/dL Aspartate Amino Transferase (AST) 20 13-40 U/L Alanine Aminotransferase (ALT) 23 7-40 U/L Alkaline Phosphatase 63 46-116 U/L Total Protein 6.8 5.7-8.2 g/dL Albumin 4.3 3.2-4.8 g/dL Assessment Impression: Acute on chronic hypoxic respiratory failure Asthma exacerbation Asthma due to seasonal allergies Obesity Nicotine dependence Marijuana use Plan: Supplemental oxygen Titrate to keep O2 sats above 92%. Bronchodilators Steroids Incentive spirometry Consider montelukast Smoking cessation discussed for greater than 10 minutes Counseled against marijuana use. Diet and lifestyle modifications for weight reduction as obesity complicates all care DVT prophylaxis. Prognosis: Poor given patient's multiple co-morbidities. Rest of plan per hospitalist and other consultants. Thank you Bala Marroquin NP, for allowing me to participate in this patient's care. Further recommendations will depend on the patient's clinical course. Please do not hesitate to contact me if you have any questions or concerns. This medical document was created using an electronic medical record system with [employer] system. Although these documentations are being carefully reviewed, there may still be some phonetic and typographical changes. The errors are purely typographical, due to imperfection on the software program, and do not reflect any compromise in the patient's medical care. Plan discussed with: Patient, Other (RN/CHRISTOPHE Marroquin) AMAN BIANCHI MD Nov 11, 2024 21:43
[2024-11-11] MEDS ORDERED: BUDESONIDE (INHALATION) 0.5 MG/2 ML NEB NEB SCH (22:00)
[2024-11-11] MEDS: DOXYCYCLINE 100 MG TAB/CAP PO SCH (22:36)
[2024-11-12] VITALS (19 sets, daily range): BP systolic 108–129; BP diastolic 51–70; PULSE 81–110; RESP 15–20; TEMP 97.5–99.4; O2SAT 92–99
[2024-11-12] MEDS: ALBUTEROL SULF 2.5 MG/0.5ML(0.5%) NEB SOLN NEB PRN (03:04)
[2024-11-12] MEDS: IPRATROPIUM BROM 0.5 MG/2.5ML INH SOL NEB PRN (03:05)
--- NOTE | 2024-11-12 08:16 | ECG ---
[facility] Test Date: 2024-11-10 Test Time: 19:48:16 Pat Name: CORNELIA GOMEZ Department: ER Room: [address] [place] [address] 8 Gender: F Sensor Operator: DAYNE : 1995 Requested By: SAGRARIO POWERS Order Number: [id number] Reading MD: Sulaiman Pablo Measurements Intervals [place] Rate: 135 P: 81 UT: 143 QRS: 74 QRSD: 80 T: 69 QT: 288 QTc: 432 Interpretive Statements Sinus tachycardia Electronically Signed On 11-13-2024 10:24:23 PST by Sulaiman Pablo Please click the below link to view image of tracing.
[2024-11-12] MEDS: LORATADINE 10 MG TAB PO SCH (09:55)
--- NOTE | 2024-11-12 11:19 | DVHPN2 ---
Subjective Patient reports that her shortness of breath has improved Reviewed: Care Plan, H&P, Labs, Medications Changes from previous H/P or p: No Changes General: Per HPI Objective Vitals Vital Signs Date Time Temp Pulse Resp B/P (MAP) Pulse Ox O2 Delivery O2 Flow Rate FiO2 11/12/24 10:15 88 18 98 11/12/24 10:09 Oxymizer 8 N/A 11/12/24 08:39 98.2 112/55 (74) 98.2 Intake/Output Intake and Output 11/12/24 07:00 Intake Total 975 ml Output Total 1220 ml Balance -245 ml Intake Oral 400 ml IV Total 575 ml Output Urine Total 1220 ml General Appearance: Alert, Oriented X3, Cooperative, mild distress HEENT: Atraumatic, PERRLA Lungs: Other (Inspiratory and expiratory wheezing. Patient was Oxymizer at 8 liters/minute.) Cardiovascular: Normal S1, Normal S2 Abdomen: Normal bowel sounds, Soft Musculoskeletal: Normal sensory function, Normal motor function Neuro: Normal speech Psych/Mental Status: Mental status NL, Mood NL Medications Current Medications Medications Dose Ordered Sig/Alda Route Start Time Stop Time Status Last Admin Dose Admin Methylprednisolone Sodium Succinate 40 mg BID IV 11/11/24 10:00 11/12/24 09:55 40 MG Ondansetron HCl 4 mg Q4HP PRN IV 11/10/24 23:00 Acetaminophen 650 mg Q6HP PRN PO 11/10/24 23:00 11/11/24 18:00 650 MG Guaifenesin/ Dextromethorphan 10 ml Q4HP PRN PO 11/11/24 04:48 11/11/24 23:35 10 ML Azithromycin 250 ml @ 125 mls/hr DAILY IV 11/11/24 10:00 11/12/24 09:55 125 MLS/HR Albuterol 2.5 mg Q4HWA NEB 11/11/24 18:00 11/12/24 10:08 2.5 MG Ipratropium [place] 0.5 mg Q4HWA NEB 11/11/24 18:00 11/12/24 10:09 0.5 MG Budesonide 0.5 mg BID NEB 11/11/24 22:00 11/12/24 07:00 0.5 MG Doxycycline Monohydrate 100 mg Q12HR PO 11/11/24 22:00 11/12/24 09:55 100 MG Loratadine 10 mg DAILY PO 11/12/24 10:00 11/12/24 09:55 10 MG Ipratropium [place] 0.5 mg Q6HPRN PRN NEB 11/12/24 02:45 11/12/24 03:05 0.5 MG Albuterol 2.5 mg Q6HPRN PRN NEB 11/12/24 02:45 11/12/24 03:04 2.5 MG Laboratory Results Laboratory Tests 11/10/24 22:45 11/11/24 04:40 Labs and/or images reviewed: Labs reviewed by me, Image(s) reviewed by me Assessment/Plan Assessment/Plan Impression: -acute on chronic hypoxic respiratory failure -asthma exacerbation -rule out bronchial pneumonia -morbid obesity Plan: Events: Patient was found to be on 8 L via Oxymizer with a saturation of 99%. I myself, reassess the patient on room air with saturation dropping to 90%. Patient O2 supplementation left at 2 liters/minute. -DuoNebs q.4 hours -Pulmicort b.i.d. -continue mucolytics -IV hydration -IV magnesium -pulmonary consultation : Recommendations reviewed -repeat chest x-ray in a.m. -discharge planning in a.m. if patient has been weaned off of oxygen. Total time spent with patient discussing and formulating plan of care: 35 minutes. This medical document was created using an electronic medical record system with [employer] dictation system. Although this document has been carefully reviewed, there may still be some phonetic and typographical errors. These areas are purely typographical due to imperfections of the software programs, and do not reflect any compromise in the patient's medical care. Plan discussed with: Patient, Other (RN) My Orders Orders - SEGUN CARLOS NP Procedure Category Date Status Time Albuterol Medneb PHA 11/11/24 In Process (Ventolin Medneb) 18:00 Ipratropium Medneb PHA 11/11/24 In Process (Atrovent Medneb) 18:00 Budesonide PHA 11/11/24 In Process (Inhalation) 22:00 Doxycycline Tablet PHA 11/11/24 In Process (Vibramycin Tablet) 22:00 Chest Xray 1 View XY 11/11/24 Resulted 14:36 Loratadine Tablet PHA 11/12/24 In Process (Claritin Tablet) 10:00 Oxygen By Nasal RT 11/12/24 Transmitted Cannula 11:15 Chest Xray 1 View XY 11/13/24 Logged 04:00 Date of Service: Nov 12, 2024 Billing Provider: SEGUN CARLOS NP Common Visit Codes: [id number] INP/OBS CARE(HIGH) SEGUN CARLOS NP Nov 12, 2024 11:19
--- NOTE | 2024-11-12 14:50 | DVH ---
Procedure: CT CHEST WITHOUT CONTRAST Reason for study/Clinical History: Chronic dyspnea. Comparison Study: None. Exam Date: 11/12/2024 02:27 PM TECHNIQUE: Multidetector CT of the chest was performed from the lung apices to the upper abdomen with out the use of intravenous contract. Axial, coronal and sagittal multiplanar reformats were performed . Radiation Dose Information: CT Dose: CTDI volume is 30 mGy. Dose-length product is 1091 mGy*cm The dose indicators for CT are the volume Computed Tomography (CT) Dose Index (CTDIvol) and the Dose Length Product (DLP), and are measured in units of mGy and mGy-cm, respectively. These indicators are not patient dose, but values generated from the CT scanner acquisition factors. The report includes radiation exposure data for exposures received during this examination. Radiation optimization: All CT scans at this facility use at least one of these dose optimization juan hniques: automated exposure control mA and/or kV adjustment per patient size (includes targeted exam s where dose is matched to clinical indication) or iterative reconstruction. FINDINGS Lungs/Pleura: No focal consolidation. No suspicious appearing pulmonary nodule or mass. There is no e vidence of pleural effusion or pneumothorax. The central airways are clear. Heart/Vascular Structures: Normal heart size. No pericardial effusion. Lymph Nodes: There are mildly prominent mediastinal lymph nodes measuring up to 9 mm in the short axi s. There is no axillary lymphadenopathy. Musculoskeletal: No acute osseous abnormality. Soft tissues: Unremarkable. Upper abdomen: Visualized solid abdominal viscera grossly appears unremarkable. IMPRESSION: 1. There is no acute intrathoracic abnormality. 2. Nonspecific mildly prominent mediastinal lymph nodes measuring up to 9 mm in the short axis. Clini duy correlation and comparison with any available prior CT chest studies is recommended. HS:Y
--- NOTE | 2024-11-12 23:09 | DVHPN2 ---
Progress Note - Dictate Date Seen: Nov 12, 2024 Medical Necessity Reason Pt with a Central, PICC or Fol: No Subjective Patient seen and examined at bedside. Remains on supplemental oxygen Overnight events reviewed. vital signs Vital Sign Date Time Temp Pulse Resp B/P (MAP) Pulse Ox O2 Delivery O2 Flow Rate FiO2 11/12/24 23:05 81 18 98 11/12/24 21:00 97.5 129/70 (89) 97.5 11/12/24 19:25 Nasal Cannula 4.0 11/12/24 19:25 36 Total Intake and Output 11/11/24 11/11/24 11/12/24 15:00 23:00 07:00 Intake Total 250 ml 325 ml 400 ml Output Total 1220 ml Balance 250 ml 325 ml -820 ml medications Current Medications Medications Dose Ordered Sig/Alda Route Start Time Stop Time Status Last Admin Dose Admin Methylprednisolone Sodium Succinate 40 mg BID IV 11/11/24 10:00 11/12/24 21:34 40 MG Ondansetron HCl 4 mg Q4HP PRN IV 11/10/24 23:00 Acetaminophen 650 mg Q6HP PRN PO 11/10/24 23:00 11/11/24 18:00 650 MG Guaifenesin/ Dextromethorphan 10 ml Q4HP PRN PO 11/11/24 04:48 11/11/24 23:35 10 ML Albuterol 2.5 mg Q4HWA NEB 11/11/24 18:00 11/12/24 22:56 2.5 MG Ipratropium [place] 0.5 mg Q4HWA NEB 11/11/24 18:00 11/12/24 22:56 0.5 MG Budesonide 0.5 mg BID NEB 11/11/24 22:00 11/12/24 22:56 0.5 MG Doxycycline Monohydrate 100 mg Q12HR PO 11/11/24 22:00 11/12/24 21:34 100 MG Loratadine 10 mg DAILY PO 11/12/24 10:00 11/12/24 09:55 10 MG Ipratropium [place] 0.5 mg Q6HPRN PRN NEB 11/12/24 02:45 11/12/24 03:05 0.5 MG Albuterol 2.5 mg Q6HPRN PRN NEB 11/12/24 02:45 11/12/24 03:04 2.5 MG objective Gen.: Patient lying in bed in no apparent distress. On supplemental oxygen. Head: Normocephalic, atraumatic. Eyes: EOMI/PERRLA. Ears: Normal hearing. Normal anatomy. Neck/trachea: Trachea midline, supple. Nose: Normal external anatomy. Mouth: Moist mucous membranes. Chest: Decreased air entry bilaterally. No wheezing or rhonchi. Cardiovascular: Positive S1, positive S2. Regular rate and rhythm. Abdomen: Positive bowel sounds in all 4 quadrants. Soft, non-tender, non- distended. : Deferred. Rectal: Deferred. Skin: Warm, dry. Intact. Extremities: 2+ radial pulses bilaterally. No lower extremity edema. Neuro: Awake, alert, oriented x3. No gross motor or sensory deficits. Cranial nerves II through XII intact. Gait not assessed. laboratory and microbiology Laboratory Tests 11/11/24 04:40 11/10/24 22:45 Test 11/11/24 04:40 Range/Units Serum Glucose 159 H 74-106 mg/dL Assessment/Plan Impression: Acute on chronic hypoxic respiratory failure Asthma exacerbation Asthma due to seasonal allergies Obesity Nicotine dependence Marijuana use Events: Remains on supplemental oxygen, 2.5 LPM NC Taper O2 as tolerated Improving O2 requirements Patient with cough/phlegm. Continue antibiotics Incentive spirometry Labs and imaging reviewed. Rest of plan as noted below. Plan: Supplemental oxygen Titrate to keep O2 sats above 92%. Bronchodilators Steroids Incentive spirometry Consider montelukast Smoking cessation discussed for greater than 10 minutes Counseled against marijuana use. Diet and lifestyle modifications for weight reduction as obesity complicates all care DVT prophylaxis. Prognosis: Poor given patient's multiple co-morbidities. Rest of plan per hospitalist and other consultants. Thank you Bala Marroquin NP, for allowing me to participate in this patient's care. Further recommendations will depend on the patient's clinical course. Please do not hesitate to contact me if you have any questions or concerns. This medical document was created using an electronic medical record system with [employer] system. Although these documentations are being carefully reviewed, there may still be some phonetic and typographical changes. The errors are purely typographical, due to imperfection on the software program, and do not reflect any compromise in the patient's medical care. Plan discussed with: Patient, Other (RN Cesar) AMAN BIANCHI MD Nov 12, 2024 23:09
[2024-11-13] VITALS (19 sets, daily range): BP systolic 103–132; BP diastolic 60–77; PULSE 84–105; RESP 15–20; TEMP 98–99.3; O2SAT 92–98
--- NOTE | 2024-11-13 05:50 | DVH ---
CHEST RADIOGRAPH Indication: Asthma Exacerbation Technique: Single frontal view of the chest was obtained Comparison: XY CHEST XRAY 1 VIEW on DOS: 11/11/24 FINDINGS: Lines and Tubes: None Lungs: No focal consolidation. Pleura: No effusion. No pneumothorax. Cardiomediastinal contours: Unremarkable Bones: No acute osseous abnormality. IMPRESSION: 1. No acute cardiopulmonary disease.
--- NOTE | 2024-11-13 14:02 | DVHPN2 ---
Subjective Patient reports that her shortness of breath has improved Reviewed: Care Plan, H&P, Labs, Medications Changes from previous H/P or p: No Changes General: Per HPI Objective Vitals Vital Signs Date Time Temp Pulse Resp B/P (MAP) Pulse Ox O2 Delivery O2 Flow Rate FiO2 11/13/24 13:00 98.3 88 17 103/63 (76) 98 98.3 11/13/24 12:19 4.0 36 11/13/24 11:01 Nasal Cannula* Intake/Output Intake and Output 11/13/24 07:00 Intake Total 1830 ml Output Total 1420 ml Balance 410 ml Intake Oral 1580 ml IV Total 250 ml Output Urine Total 1420 ml General Appearance: Alert, Oriented X3, Cooperative, mild distress HEENT: Atraumatic, PERRLA Lungs: Other (Inspiratory and expiratory wheezing. Patient was Oxymizer at 8 liters/minute.) Cardiovascular: Normal S1, Normal S2 Abdomen: Normal bowel sounds, Soft Musculoskeletal: Normal sensory function, Normal motor function Neuro: Normal speech Psych/Mental Status: Mental status NL, Mood NL Medications Current Medications Medications Dose Ordered Sig/Alda Route Start Time Stop Time Status Last Admin Dose Admin Methylprednisolone Sodium Succinate 40 mg BID IV 11/11/24 10:00 11/13/24 10:35 40 MG Ondansetron HCl 4 mg Q4HP PRN IV 11/10/24 23:00 Acetaminophen 650 mg Q6HP PRN PO 11/10/24 23:00 11/11/24 18:00 650 MG Guaifenesin/ Dextromethorphan 10 ml Q4HP PRN PO 11/11/24 04:48 11/11/24 23:35 10 ML Albuterol 2.5 mg Q4HWA NEB 11/11/24 18:00 11/13/24 11:01 2.5 MG Ipratropium [place] 0.5 mg Q4HWA NEB 11/11/24 18:00 11/13/24 11:01 0.5 MG Budesonide 0.5 mg BID NEB 11/11/24 22:00 11/13/24 07:12 0.5 MG Doxycycline Monohydrate 100 mg Q12HR PO 11/11/24 22:00 11/13/24 10:35 100 MG Loratadine 10 mg DAILY PO 11/12/24 10:00 11/13/24 10:37 10 MG Ipratropium [place] 0.5 mg Q6HPRN PRN NEB 11/12/24 02:45 11/12/24 03:05 0.5 MG Albuterol 2.5 mg Q6HPRN PRN NEB 11/12/24 02:45 11/12/24 03:04 2.5 MG Laboratory Results Laboratory Tests 11/10/24 22:45 11/11/24 04:40 Labs and/or images reviewed: Labs reviewed by me, Image(s) reviewed by me Assessment/Plan Assessment/Plan Impression: -acute on chronic hypoxic respiratory failure -asthma exacerbation -rule out bronchial pneumonia -morbid obesity Plan: Events: CT scan of the chest was performed yesterday without any acute findings other than mediastinal lymph node enlargement. I, myself ambulate with the patient on room air with saturation dropping to 88%. Mild dyspnea noted. Given her continued hypoxia, patient will be kept on current treatment plan. Patient was on 4 L via nasal cannula, titrated to 2 L with saturation remaining 92% to 93%. -DuoNebs q.4 hours -Pulmicort b.i.d. -continue Solu-Medrol -incentive spirometer -out of bed to chair Total time spent with patient discussing and formulating plan of care: 35 minutes. This medical document was created using an electronic medical record system with [employer] dictation system. Although this document has been carefully reviewed, there may still be some phonetic and typographical errors. These areas are purely typographical due to imperfections of the software programs, and do not reflect any compromise in the patient's medical care. Plan discussed with: Patient, Other (RN) My Orders Orders - SEGUN CARLOS NP Procedure Category Date Status Time Incentive Spirometry ORDERS 11/13/24 Verified Q 1hr 13:57 Oob To Chair JES 11/13/24 Verified 13:57 Date of Service: Nov 13, 2024 Billing Provider: SEGUN CARLOS NP Common Visit Codes: [id number] INP/OBS CARE(HIGH) SEGUN CARLOS NP Nov 13, 2024 14:02
--- NOTE | 2024-11-13 22:24 | DVHPN2 ---
Progress Note - Dictate Date Seen: Nov 13, 2024 Medical Necessity Reason Pt with a Central, PICC or Fol: No Subjective Patient seen and examined at bedside. Remains on supplemental oxygen Overnight events reviewed. vital signs Vital Sign Date Time Temp Pulse Resp B/P (MAP) Pulse Ox O2 Delivery O2 Flow Rate FiO2 11/13/24 22:17 104 16 96 11/13/24 18:45 Nasal Cannula* 4 36 11/13/24 17:00 98.3 122/60 (80) 98.3 Total Intake and Output 11/12/24 11/12/24 11/13/24 15:00 23:00 07:00 Intake Total 250 ml 1340 ml 240 ml Output Total 600 ml 820 ml Balance 250 ml 740 ml -580 ml medications Current Medications Medications Dose Ordered Sig/Alda Route Start Time Stop Time Status Last Admin Dose Admin Methylprednisolone Sodium Succinate 40 mg BID IV 11/11/24 10:00 11/13/24 21:55 40 MG Ondansetron HCl 4 mg Q4HP PRN IV 11/10/24 23:00 Acetaminophen 650 mg Q6HP PRN PO 11/10/24 23:00 11/11/24 18:00 650 MG Guaifenesin/ Dextromethorphan 10 ml Q4HP PRN PO 11/11/24 04:48 11/13/24 21:53 10 ML Albuterol 2.5 mg Q4HWA NEB 11/11/24 18:00 11/13/24 21:58 2.5 MG Ipratropium [place] 0.5 mg Q4HWA NEB 11/11/24 18:00 11/13/24 21:58 0.5 MG Budesonide 0.5 mg BID NEB 11/11/24 22:00 11/13/24 21:58 0.5 MG Doxycycline Monohydrate 100 mg Q12HR PO 11/11/24 22:00 11/13/24 21:53 100 MG Loratadine 10 mg DAILY PO 11/12/24 10:00 11/13/24 10:37 10 MG Ipratropium [place] 0.5 mg Q6HPRN PRN NEB 11/12/24 02:45 11/12/24 03:05 0.5 MG Albuterol 2.5 mg Q6HPRN PRN NEB 11/12/24 02:45 11/12/24 03:04 2.5 MG objective Gen.: Patient lying in bed in no apparent distress. On supplemental oxygen. Head: Normocephalic, atraumatic. Eyes: EOMI/PERRLA. Ears: Normal hearing. Normal anatomy. Neck/trachea: Trachea midline, supple. Nose: Normal external anatomy. Mouth: Moist mucous membranes. Chest: Decreased air entry bilaterally. No wheezing or rhonchi. Cardiovascular: Positive S1, positive S2. Regular rate and rhythm. Abdomen: Positive bowel sounds in all 4 quadrants. Soft, non-tender, non- distended. : Deferred. Rectal: Deferred. Skin: Warm, dry. Intact. Extremities: 2+ radial pulses bilaterally. No lower extremity edema. Neuro: Awake, alert, oriented x3. No gross motor or sensory deficits. Cranial nerves II through XII intact. Gait not assessed. laboratory and microbiology Laboratory Tests 11/11/24 04:40 11/10/24 22:45 Test 11/11/24 04:40 Range/Units Serum Glucose 159 H 74-106 mg/dL Assessment/Plan Impression: Acute on chronic hypoxic respiratory failure Asthma exacerbation Asthma due to seasonal allergies Obesity Nicotine dependence Marijuana use Events: Remains on supplemental oxygen, 2 LPM NC Taper O2 as tolerated Improving O2 requirements Patient with cough/phlegm. Continue bronchodilators Continue antibiotics Incentive spirometry CT chest demonstrates no acute opacities. Mediastinal lymph node, reactive. Labs and imaging reviewed. Rest of plan as noted below. Plan: Supplemental oxygen Titrate to keep O2 sats above 92%. Bronchodilators Steroids Incentive spirometry Consider montelukast Smoking cessation discussed for greater than 10 minutes Counseled against marijuana use. Diet and lifestyle modifications for weight reduction as obesity complicates all care DVT prophylaxis. Prognosis: Poor given patient's multiple co-morbidities. Rest of plan per hospitalist and other consultants. Thank you Bala Marroquin NP, for allowing me to participate in this patient's care. Further recommendations will depend on the patient's clinical course. Please do not hesitate to contact me if you have any questions or concerns. This medical document was created using an electronic medical record system with [employer] dictation system. Although these documentations are being carefully reviewed, there may still be some phonetic and typographical changes. The errors are purely typographical, due to imperfection on the software program, and do not reflect any compromise in the patient's medical care. Plan discussed with: Patient, Other (JUAN M Freire) AMAN BIANCHI MD Nov 13, 2024 22:24
[2024-11-14] VITALS (18 sets, daily range): BP systolic 96–132; BP diastolic 55–82; PULSE 79–103; RESP 16–20; TEMP 98–99.1; O2SAT 92–98
[2024-11-14] MEDS: IPRATROPIUM BROM 0.5 MG/2.5ML INH SOL NEB SCH (06:57)
[2024-11-14] MEDS: ALBUTEROL SULF 2.5 MG/0.5ML(0.5%) NEB SOLN NEB SCH (06:57)
--- NOTE | 2024-11-14 16:37 | DVHPN2 ---
Progress Note - Dictate Date Seen: Nov 14, 2024 Medical Necessity Reason Pt with a Central, PICC or Fol: No Subjective Patient seen and examined at bedside. Remains on supplemental oxygen Overnight events reviewed. vital signs Vital Sign Date Time Temp Pulse Resp B/P (MAP) Pulse Ox O2 Delivery O2 Flow Rate FiO2 11/14/24 13:54 103 16 98 11/14/24 13:43 Nasal Cannula 3.0 11/14/24 13:43 32 11/14/24 13:06 98.4 120/70 (87) 98.4 Total Intake and Output 11/13/24 11/13/24 11/14/24 15:00 23:00 07:00 Intake Total 460 ml 300 ml Balance 460 ml 300 ml medications Current Medications Medications Dose Ordered Sig/Alda Route Start Time Stop Time Status Last Admin Dose Admin Methylprednisolone Sodium Succinate 40 mg BID IV 11/11/24 10:00 11/14/24 09:55 40 MG Ondansetron HCl 4 mg Q4HP PRN IV 11/10/24 23:00 Acetaminophen 650 mg Q6HP PRN PO 11/10/24 23:00 11/11/24 18:00 650 MG Guaifenesin/ Dextromethorphan 10 ml Q4HP PRN PO 11/11/24 04:48 11/14/24 06:17 10 ML Budesonide 0.5 mg BID NEB 11/11/24 22:00 11/14/24 06:57 0.5 MG Doxycycline Monohydrate 100 mg Q12HR PO 11/11/24 22:00 11/14/24 09:56 100 MG Loratadine 10 mg DAILY PO 11/12/24 10:00 11/14/24 09:56 10 MG Ipratropium [place] 0.5 mg Q6HPRN PRN NEB 11/12/24 02:45 11/14/24 02:23 0.5 MG Albuterol 2.5 mg Q6HPRN PRN NEB 11/12/24 02:45 11/14/24 02:22 2.5 MG Albuterol 2.5 mg Q4HR NEB 11/14/24 06:00 11/14/24 13:43 2.5 MG Ipratropium [place] 0.5 mg Q4HR NEB 11/14/24 06:00 11/14/24 13:43 0.5 MG objective Gen.: Patient lying in bed in no apparent distress. On supplemental oxygen. Head: Normocephalic, atraumatic. Eyes: EOMI/PERRLA. Ears: Normal hearing. Normal anatomy. Neck/trachea: Trachea midline, supple. Nose: Normal external anatomy. Mouth: Moist mucous membranes. Chest: Decreased air entry bilaterally. No wheezing or rhonchi. Cardiovascular: Positive S1, positive S2. Regular rate and rhythm. Abdomen: Positive bowel sounds in all 4 quadrants. Soft, non-tender, non- distended. : Deferred. Rectal: Deferred. Skin: Warm, dry. Intact. Extremities: 2+ radial pulses bilaterally. No lower extremity edema. Neuro: Awake, alert, oriented x3. No gross motor or sensory deficits. Cranial nerves II through XII intact. Gait not assessed. laboratory and microbiology Laboratory Tests 11/11/24 04:40 11/10/24 22:45 Test 11/11/24 04:40 Range/Units Serum Glucose 159 H 74-106 mg/dL Assessment/Plan Impression: Acute on chronic hypoxic respiratory failure Asthma exacerbation Asthma due to seasonal allergies Obesity Nicotine dependence Marijuana use Events: Remains on supplemental oxygen, 4 LPM NC Taper O2 as tolerated Patient c/o CARR, improving slowly Continue bronchodilators Continue antibiotics Continue Steroids - taper as tolerated Labs and imaging reviewed. Rest of plan as noted below. Plan: Supplemental oxygen Titrate to keep O2 sats above 92%. Bronchodilators Steroids Incentive spirometry Consider montelukast Smoking cessation discussed for greater than 10 minutes Counseled against marijuana use. Diet and lifestyle modifications for weight reduction as obesity complicates all care DVT prophylaxis. Prognosis: Poor given patient's multiple co-morbidities. Rest of plan per hospitalist and other consultants. Thank you Bala Marroquin NP, for allowing me to participate in this patient's care. Further recommendations will depend on the patient's clinical course. Please do not hesitate to contact me if you have any questions or concerns. This medical document was created using an electronic medical record system with [employer] dictation system. Although these documentations are being carefully reviewed, there may still be some phonetic and typographical changes. The errors are purely typographical, due to imperfection on the software program, and do not reflect any compromise in the patient's medical care. Plan discussed with: Patient, Other (ANGELICA LeblancARDO M MD Nov 14, 2024 16:37
--- NOTE | 2024-11-14 17:04 | DVHPN2 ---
Subjective feels better than on admission Reviewed: Care Plan, H&P, Labs, Medications Changes from previous H/P or p: No Changes General: Per HPI Objective Vitals Vital Signs Date Time Temp Pulse Resp B/P (MAP) Pulse Ox O2 Delivery O2 Flow Rate FiO2 11/14/24 13:54 103 16 98 11/14/24 13:43 Nasal Cannula 3.0 11/14/24 13:43 32 11/14/24 13:06 98.4 120/70 (87) 98.4 Intake/Output Intake and Output 11/14/24 07:00 Intake Total 760 ml Balance 760 ml Intake Oral 760 ml # Voids 6 # Bowel Movements 2 General Appearance: Alert, Oriented X3, Cooperative, mild distress HEENT: Atraumatic, PERRLA Lungs: Clear to auscultation Cardiovascular: Normal S1, Normal S2 Abdomen: Normal bowel sounds, Soft Musculoskeletal: Normal sensory function, Normal motor function Neuro: Normal speech Psych/Mental Status: Mental status NL, Mood NL Medications Current Medications Medications Dose Ordered Sig/Alda Route Start Time Stop Time Status Last Admin Dose Admin Methylprednisolone Sodium Succinate 40 mg BID IV 11/11/24 10:00 11/14/24 09:55 40 MG Ondansetron HCl 4 mg Q4HP PRN IV 11/10/24 23:00 Acetaminophen 650 mg Q6HP PRN PO 11/10/24 23:00 11/11/24 18:00 650 MG Guaifenesin/ Dextromethorphan 10 ml Q4HP PRN PO 11/11/24 04:48 11/14/24 06:17 10 ML Budesonide 0.5 mg BID NEB 11/11/24 22:00 11/14/24 06:57 0.5 MG Doxycycline Monohydrate 100 mg Q12HR PO 11/11/24 22:00 11/14/24 09:56 100 MG Loratadine 10 mg DAILY PO 11/12/24 10:00 11/14/24 09:56 10 MG Ipratropium [place] 0.5 mg Q6HPRN PRN NEB 11/12/24 02:45 11/14/24 02:23 0.5 MG Albuterol 2.5 mg Q6HPRN PRN NEB 11/12/24 02:45 11/14/24 02:22 2.5 MG Albuterol 2.5 mg Q4HR NEB 11/14/24 06:00 11/14/24 13:43 2.5 MG Ipratropium [place] 0.5 mg Q4HR NEB 11/14/24 06:00 11/14/24 13:43 0.5 MG Laboratory Results Laboratory Tests 11/10/24 22:45 11/11/24 04:40 Labs and/or images reviewed: Labs reviewed by me, Image(s) reviewed by me Assessment/Plan Assessment/Plan asthma exacerbation- R/O obesity hypoventilation syndrome normal echo 2016- valves/ef normal- pt notified ambulatory status Plan discussed with: Patient, Other Date of Service: Nov 14, 2024 Billing Provider: KIKE LOZANO MD Common Visit Codes: [id number] INP/OBS CARE(MOD) KIKE LOZANO MD Nov 14, 2024 17:04
[2024-11-14 21:34] LABS: Base Excess 3.9 mmol/L (-2.0-3.0)
[2024-11-15] VITALS (21 sets, daily range): BP systolic 101–150; BP diastolic 60–81; PULSE 73–110; RESP 16–20; TEMP 97.5–98.6; O2SAT 90–98
--- NOTE | 2024-11-15 19:52 | DVHPN2 ---
Subjective feels better than on admission Reviewed: Care Plan, H&P, Labs, Medications Changes from previous H/P or p: No Changes General: Per HPI Objective Vitals Vital Signs Date Time Temp Pulse Resp B/P (MAP) Pulse Ox O2 Delivery O2 Flow Rate FiO2 11/15/24 16:00 98.0 92 19 115/63 (80) 93 98.0 11/15/24 07:47 Nasal Cannula* 3 32 Intake/Output Intake and Output 11/15/24 07:00 Intake Total 1966 ml Balance 1966 ml Intake Oral 1966 ml # Voids 7 # Bowel Movements 2 General Appearance: Alert, Oriented X3, Cooperative, mild distress HEENT: Atraumatic, PERRLA Lungs: Clear to auscultation Cardiovascular: Normal S1, Normal S2 Abdomen: Normal bowel sounds, Soft Musculoskeletal: Normal sensory function, Normal motor function Neuro: Normal speech Psych/Mental Status: Mental status NL, Mood NL Medications Current Medications Medications Dose Ordered Sig/Alda Route Start Time Stop Time Status Last Admin Dose Admin Methylprednisolone Sodium Succinate 40 mg BID IV 11/11/24 10:00 11/15/24 09:29 40 MG Ondansetron HCl 4 mg Q4HP PRN IV 11/10/24 23:00 Acetaminophen 650 mg Q6HP PRN PO 11/10/24 23:00 11/11/24 18:00 650 MG Guaifenesin/ Dextromethorphan 10 ml Q4HP PRN PO 11/11/24 04:48 11/15/24 09:44 10 ML Budesonide 0.5 mg BID NEB 11/11/24 22:00 11/15/24 19:08 0.5 MG Doxycycline Monohydrate 100 mg Q12HR PO 11/11/24 22:00 11/15/24 09:28 100 MG Loratadine 10 mg DAILY PO 11/12/24 10:00 11/15/24 09:28 10 MG Ipratropium [place] 0.5 mg Q6HPRN PRN NEB 11/12/24 02:45 11/14/24 02:23 0.5 MG Albuterol 2.5 mg Q6HPRN PRN NEB 11/12/24 02:45 11/14/24 02:22 2.5 MG Albuterol 2.5 mg Q4HR NEB 11/14/24 06:00 11/15/24 19:08 2.5 MG Ipratropium [place] 0.5 mg Q4HR NEB 11/14/24 06:00 11/15/24 19:08 0.5 MG Laboratory Results Laboratory Tests 11/10/24 22:45 11/11/24 04:40 Blood Gas Results Test 11/14/24 21:27 Arterial Blood pH 7.433 (7.350-7.450) FiO2 % 21.0 Labs and/or images reviewed: Labs reviewed by me, Image(s) reviewed by me Assessment/Plan Assessment/Plan asthma exacerbation- ruled out obesity hypoventilation syndrome normal echo 2016- valves/ef normal- pt notified ambulatory status Plan discussed with: Patient, Other Date of Service: Nov 15, 2024 Billing Provider: KIKE LOZANO MD Common Visit Codes: [id number] INP/OBS CARE(MOD) KIKE LOZANO MD Nov 15, 2024 19:52
--- NOTE | 2024-11-15 23:17 | DVHPN2 ---
Progress Note - Dictate Date Seen: Nov 15, 2024 Medical Necessity Reason Pt with a Central, PICC or Fol: No Subjective Patient seen and examined at bedside. Remains on supplemental oxygen Overnight events reviewed. vital signs Vital Sign Date Time Temp Pulse Resp B/P (MAP) Pulse Ox O2 Delivery O2 Flow Rate FiO2 11/15/24 23:05 80 18 98 11/15/24 22:55 Nasal Cannula* 3 32 11/15/24 21:00 97.5 101/60 (74) 97.5 Total Intake and Output 11/14/24 11/14/24 11/15/24 15:00 23:00 07:00 Intake Total 750 ml 716 ml 500 ml Balance 750 ml 716 ml 500 ml medications Current Medications Medications Dose Ordered Sig/Alda Route Start Time Stop Time Status Last Admin Dose Admin Methylprednisolone Sodium Succinate 40 mg BID IV 11/11/24 10:00 11/15/24 21:47 40 MG Ondansetron HCl 4 mg Q4HP PRN IV 11/10/24 23:00 Acetaminophen 650 mg Q6HP PRN PO 11/10/24 23:00 11/11/24 18:00 650 MG Guaifenesin/ Dextromethorphan 10 ml Q4HP PRN PO 11/11/24 04:48 11/15/24 09:44 10 ML Budesonide 0.5 mg BID NEB 11/11/24 22:00 11/15/24 19:08 0.5 MG Doxycycline Monohydrate 100 mg Q12HR PO 11/11/24 22:00 11/15/24 21:46 100 MG Loratadine 10 mg DAILY PO 11/12/24 10:00 11/15/24 09:28 10 MG Ipratropium [place] 0.5 mg Q6HPRN PRN NEB 11/12/24 02:45 11/14/24 02:23 0.5 MG Albuterol 2.5 mg Q6HPRN PRN NEB 11/12/24 02:45 11/14/24 02:22 2.5 MG Albuterol 2.5 mg Q4HR NEB 11/14/24 06:00 11/15/24 22:55 2.5 MG Ipratropium [place] 0.5 mg Q4HR NEB 11/14/24 06:00 11/15/24 22:55 0.5 MG objective Gen.: Patient lying in bed in no apparent distress. On supplemental oxygen. Head: Normocephalic, atraumatic. Eyes: EOMI/PERRLA. Ears: Normal hearing. Normal anatomy. Neck/trachea: Trachea midline, supple. Nose: Normal external anatomy. Mouth: Moist mucous membranes. Chest: Decreased air entry bilaterally. No wheezing or rhonchi. Cardiovascular: Positive S1, positive S2. Regular rate and rhythm. Abdomen: Positive bowel sounds in all 4 quadrants. Soft, non-tender, non- distended. : Deferred. Rectal: Deferred. Skin: Warm, dry. Intact. Extremities: 2+ radial pulses bilaterally. No lower extremity edema. Neuro: Awake, alert, oriented x3. No gross motor or sensory deficits. Cranial nerves II through XII intact. Gait not assessed. laboratory and microbiology Laboratory Tests 11/11/24 04:40 11/10/24 22:45 Test 11/11/24 04:40 Range/Units Serum Glucose 159 H 74-106 mg/dL Assessment/Plan Impression: Acute on chronic hypoxic respiratory failure Asthma exacerbation Asthma due to seasonal allergies Obesity Nicotine dependence Marijuana use Events: Remains on supplemental oxygen, 4 LPM NC Taper O2 as tolerated Continue bronchodilators Continue antibiotics Continue Steroids - taper as tolerated IS. Labs and imaging reviewed. Rest of plan as noted below. Plan: Supplemental oxygen Titrate to keep O2 sats above 92%. Bronchodilators Steroids Incentive spirometry Consider montelukast Smoking cessation discussed for greater than 10 minutes Counseled against marijuana use. Diet and lifestyle modifications for weight reduction as obesity complicates all care DVT prophylaxis. Prognosis: Poor given patient's multiple co-morbidities. Rest of plan per hospitalist and other consultants. Thank you Bala Marroquin NP, for allowing me to participate in this patient's care. Further recommendations will depend on the patient's clinical course. Please do not hesitate to contact me if you have any questions or concerns. This medical document was created using an electronic medical record system with [employer] dictation system. Although these documentations are being carefully reviewed, there may still be some phonetic and typographical changes. The errors are purely typographical, due to imperfection on the software program, and do not reflect any compromise in the patient's medical care. Plan discussed with: Patient, Other (JUAN M Lara) AMAN BIANCHI MD Nov 15, 2024 23:17
[2024-11-16] VITALS (13 sets, daily range): BP systolic 120–143; BP diastolic 53–74; PULSE 72–91; RESP 16–20; TEMP 97.3–98.6; O2SAT 92–98
[2024-11-16] MEDS ORDERED: PRED20TA2 PO (16:05)
[2024-11-16] MEDS ORDERED: MONT5CHW12 PO (16:06)
[2024-11-16] MEDS ORDERED: ALBUAER3 IN (16:06)
--- NOTE | 2024-11-16 16:10 | DVHDS2 ---
Discharge Summary Date of Admission Nov 10, 2024 at 23:03 Date of Discharge: Nov 16, 2024 Admitting Diagnosis Acute on chronic respiratory failure Labs/Diagnostic Data: Laboratory Results Test 11/14/24 21:27 11/11/24 04:40 11/11/24 01:49 11/10/24 23:03 Blood Gas Specimen Type Arterial Blood Gas Sample Site Right brachial Blood Gas Patient Temperature 37.0 Arterial Blood Date Drawn [id number] Arterial Blood pH 7.433 (7.350-7.450) Arterial Blood Partial Pressure CO2 44.1 mmHg (32.0-45.0) Arterial Blood Partial Pressure O2 59.7 mmHg (83.0-108.0) Arterial Blood HCO3 28.8 mmol/L (21.0-28.0) Arterial Blood Oxygen Saturation 91.2 % (94.0-98.0) Arterial Blood Base Excess 3.9 mmol/L (-2.0-3.0) Arterial Blood Oxyhemoglobin 90.4 % (94.0-98.0) Arterial Blood Carboxyhemoglobin 0.5 % (0.5-1.5) Arterial Blood Methemoglobin 0.4 % (0.0-1.5) Jose Antonio Test N/a Blood Gas Total Hemoglobin 14.90 g/dL (12.0-16.0) Blood Gas Modality Room air FiO2 % 21.0 Sodium Level 138 mmol/L (136-145) Potassium Level 4.2 mmol/L (3.5-5.1) Chloride Level 105 mmol/L (98-107) Carbon Dioxide Level 26 mmol/L (20-31) Anion Gap 7 (5-15) Blood Urea Nitrogen 8 mg/dL (9-23) Creatinine 0.81 mg/dL (0.550-1.02) Glomerular Filtration Rate Calc 101 mL/min (>90) BUN/Creatinine Ratio 9.9 (10.0-20.0) Serum Glucose 159 mg/dL (74-106) Calcium Level 9.8 mg/dL (8.7-10.4) Influenza Type A Antigen Negative (Negative) Influenza Type B Antigen Negative (Negative) SARS-CoV-2 Antigen (Rapid) Negative (NEGATIVE) Blood Gas Liter Flow 4.00 Test 11/10/24 22:45 White Blood Count 8.7 10^3/uL (4.4-10.8) Red Blood Count 4.63 10^6/uL (4.0-5.20) Hemoglobin 13.5 g/dL (12.2-16.2) Hematocrit 40.5 % (36.0-46.0) Mean Corpuscular Volume 87.5 fL (80.0-100.0) Mean Corpuscular Hemoglobin 29.0 pg (28.0-32.0) Mean Corpuscular Hemoglobin Concent 33.2 g/dL (32.0-36.0) Red Cell Distribution Width 14.6 % (11.8-14.3) Platelet Count 334 10^3/uL (140-450) Mean Platelet Volume 7.2 fL (6.9-10.8) Neutrophils (%) (Auto) 84.7 % (37.0-80.0) Lymphocytes (%) (Auto) 5.6 % (10.0-50.0) Monocytes (%) (Auto) 6.5 % (0.0-12.0) Eosinophils (%) (Auto) 2.9 % (0.0-7.0) Basophils (%) (Auto) 0.3 % (0.0-2.0) Neutrophils # (Auto) 7.3 10 ^3/uL (1.6-8.6) Lymphocytes # (Auto) 0.5 10 ^3/uL (0.4-5.4) Monocytes # (Auto) 0.6 10 ^3/uL (0-1.3) Eosinophils # (Auto) 0.2 10 ^3/uL (0-0.8) Basophils # (Auto) 0 10 ^3/uL (0-0.2) Nucleated Red Blood Cells 0.0 % Lactic Acid Level 1.1 mmol/L (0.4-2.0) Total Bilirubin 0.9 mg/dL (0.2-1.0) Aspartate Amino Transferase (AST) 20 U/L (13-40) Alanine Aminotransferase (ALT) 23 U/L (7-40) Alkaline Phosphatase 63 U/L (46-116) Total Protein 6.8 g/dL (5.7-8.2) Albumin 4.3 g/dL (3.2-4.8) Other Laboratory Tests 11/11/24 04:40 11/10/24 22:45 Brief Hx & Hospital Course: History of Present Illness 29-year-old female presents for evaluation of shortness for breath. Patient with a history of asthma reports using her albuterol without relief of the symptoms. Symptoms have been ongoing for the past day. She reports having intermittent chills with a productive cough with green phlegm. Denies chest pain. No other acute complaints reported. Course of hospitalization: Patient was started on IV Solu-Medrol, bronchodilators, Pulmicort, IV magnesium, IV hydration. Patient's symptoms have improved dramatically. Patient had difficulty being weaned off of oxygen with her saturation remaining around 90%. Patient was ambulated by myself approximately 40 ft without any noted dyspnea, with the patient reporting that this is probably her baseline in his requesting to be discharged home. Patient also had pulmonary consultation by Dr. De Leon. Discussion was made with Dr. De Leon regarding possible discharge with the patient for which she states the patient can be cleared for discharge given her improvement with her overall clinical status. Patient also had room air ABG which does not qualify the patient to have home O2. Patient will be discharged home and be continued on steroid in the form of prednisone 40 mg daily x5 days then 20 mg daily x5 days. She will also be started on Singulair, and we will have a refill of her Ventolin metered-dose inhaler. She was instructed to follow up with Dr. De Leon in the next 1-2 weeks as well as her PCP in the next 1- 2 weeks. The patient was agreeable with discharge plan. All questions answered. Physical exam General: Alert and Oriented x3. No acute distress. Well-nourished. Eyes: EOMI. Anicteric. HENT: Moist mucous membranes. Lungs: Clear to auscultation bilaterally. No accessory muscle use. Cardiovascular: Regular rate and rhythm. No murmur. No JVD. Abdomen: Soft, non-tender and non-distended. No palpable masses. Extremities: No edema. Non-tender. Skin: No rashes or lesions. Warm. Neurologic: No focal neurological deficits. CN II-XII grossly intact, but not individually tested. Psychiatric: Cooperative. Appropriate mood and affect. Total time spent with patient discussing and formulating plan of care: 35 minutes. This medical document was created using an electronic medical record system with [employer] system. Although this document has been carefully reviewed, there may still be some phonetic and typographical errors. These areas are purely typographical due to imperfections of the software programs, and do not reflect any compromise in the patient's medical care. Consults/Reason for consult Pulmonology: Acute respiratory failure Condition at Discharge: Fair Final Diagnosis/Problems List ACUTE ON CHRONIC RESPIRATORY FAILURE Secondary Diagnosis: -acute on chronic hypoxic respiratory failure -asthma exacerbation -ruled out bronchial pneumonia -morbid obesity Discharge Disposition: Home Discharge Instruct/Medications Diet: Regular Activity: Light activity Follow Up/Referral: Follow up with Dr. De Leon in 1-2 weeks Follow up with PCP in 1-2 weeks Medications: Prednisone 40 mg p.o. daily x5 days, then 20 mg p.o. daily Continue previous medications for asthma including nebulizer machine and Ventolin MDI Singulair 5 mg p.o. q.h.s. 36 Discharge Statement: "Patient was advised to return to the ER or call 911 if any headaches, dizziness, shortness of breath, chest pain, abdominal pain, bleeding, fevers, or worsening of medical condition. Patient was counseled about treatment plan, medications, possible side effects, patientverbalized understanding. All questions were answered to the best of my ability. This discharge took greater then 30 minutes in planning, reviewing documentation, counseling the patient, and discussing with other team members." ASSESSMENT ASSESSMENT Assessment ACUTE ON CHRONIC RESPIRATORY FAILURE Date of Service: Nov 16, 2024 Billing Provider: SEGUN CARLOS NP Common Visit Codes: 02592-NDE/OBS DISCH DAY >30min SEGUN CARLOS NP Nov 16, 2024 16:10
--- NOTE | 2024-11-16 23:08 | DVHPN2 ---
Progress Note - Dictate Date Seen: Nov 16, 2024 Medical Necessity Reason Pt with a Central, PICC or Fol: No Subjective Patient seen and examined at bedside. Remains on supplemental oxygen Overnight events reviewed. vital signs Vital Sign Date Time Temp Pulse Resp B/P (MAP) Pulse Ox O2 Delivery O2 Flow Rate FiO2 11/16/24 14:32 85 18 98 11/16/24 14:24 Nasal Cannula* 3 32 11/16/24 13:00 97.9 123/73 (90) 97.9 Total Intake and Output 11/15/24 11/15/24 11/16/24 15:00 23:00 07:00 Intake Total 1200 ml 650 ml Output Total 1000 ml Balance 200 ml 650 ml objective Gen.: Patient lying in bed in no apparent distress. On supplemental oxygen. Head: Normocephalic, atraumatic. Eyes: EOMI/PERRLA. Ears: Normal hearing. Normal anatomy. Neck/trachea: Trachea midline, supple. Nose: Normal external anatomy. Mouth: Moist mucous membranes. Chest: Decreased air entry bilaterally. No wheezing or rhonchi. Cardiovascular: Positive S1, positive S2. Regular rate and rhythm. Abdomen: Positive bowel sounds in all 4 quadrants. Soft, non-tender, non- distended. : Deferred. Rectal: Deferred. Skin: Warm, dry. Intact. Extremities: 2+ radial pulses bilaterally. No lower extremity edema. Neuro: Awake, alert, oriented x3. No gross motor or sensory deficits. Cranial nerves II through XII intact. Gait not assessed. laboratory and microbiology Laboratory Tests 11/11/24 04:40 11/10/24 22:45 Test 11/11/24 04:40 Range/Units Serum Glucose 159 H 74-106 mg/dL Assessment/Plan Impression: Acute on chronic hypoxic respiratory failure Asthma exacerbation Asthma due to seasonal allergies Obesity Nicotine dependence Marijuana use Events: Remains on supplemental oxygen, 3 LPM NC Taper O2 as tolerated Continue bronchodilators Continue antibiotics Continue Steroids - taper as tolerated IS. Patient is stable for discharge from the pulmonary standpoint. Follow up in 1-2 weeks in Pulmonary Clinic. Recommend sleep study as outpatient. Labs and imaging reviewed. Rest of plan as noted below. Plan: Supplemental oxygen Titrate to keep O2 sats above 92%. Bronchodilators Steroids Incentive spirometry Consider montelukast Smoking cessation discussed for greater than 10 minutes Counseled against marijuana use. Diet and lifestyle modifications for weight reduction as obesity complicates all care DVT prophylaxis. Prognosis: Poor given patient's multiple co-morbidities. Rest of plan per hospitalist and other consultants. Thank you Bala Marroquin NP, for allowing me to participate in this patient's care. Further recommendations will depend on the patient's clinical course. Please do not hesitate to contact me if you have any questions or concerns. This medical document was created using an electronic medical record system with [employer] dictation system. Although these documentations are being carefully reviewed, there may still be some phonetic and typographical changes. The errors are purely typographical, due to imperfection on the software program, and do not reflect any compromise in the patient's medical care. Plan discussed with: Patient, Other (RN Summer) AMAN BIANCHI MD Nov 16, 2024 23:08
== END 2024-11-16 16:40 | disposition home or self-care (01) | DRG 133 ==
LOC: ER 19:33 → OVERFLOW 23:03 → EAST 11-11 23:07
PROVIDERS: ADMIT Nurse Practitioner; ATTEND Nurse Practitioner Acute Care
DX: J96.21 Acute and chronic respiratory failure with hypoxia (principal); J45.901 Unspecified asthma with (acute) exacerbation; I10 Essential (primary) hypertension; F17.210 Nicotine dependence, cigarettes, uncomplicated; Z20.822 Contact with and (suspected) exposure to COVID-19; F12.90 Cannabis use, unspecified, uncomplicated; J43.9 Emphysema, unspecified; E66.01 Morbid (severe) obesity due to excess calories; Z83.3 Family history of diabetes mellitus; Z88.0 Allergy status to penicillin; Z82.5 Family history of asthma and other chronic lower respiratory diseases; Z82.49 Family history of ischemic heart disease and other diseases of the circulatory system
CPT/HCPCS: 36415; 36600; 71045; 71250; 80048; 80053; 82805; 83605; 85025; 87426; 87804; 93005; 94640; 96372; G0378